=== PATIENT | male | born 1965 | race Caucasian/White ===

== ENCOUNTER 2023-10-24 13:08 | Inpatient (IN) ==
--- OUTSIDE RECORDS SUMMARY | 2023-10-24 13:15 | External Medical Summary | Continuity of Care Document ---
Author Name Unknown Organization [facility] [address] [address] [place] [address] [id number] Care Team Providers Care Stereoptician Name Role Phone Raji Martel Primary Care Physician [phone] Encounter [facility] [id number] Date(s): 10/06/23 - 10/06/23 [facility] 0 [facility] [address] [facility] [address] [place] [address] [phone] Encounter Diagnosis Other chronic pain(Final) - Chronic back pain(Discharge Diagnosis) - 10/07/23 Discharge Disposition: Home or Self Care Attending Physician: DO Hendricks Gretchen Elizabeth Allergies, Adverse Reactions, Alerts Substance Criticality Severity Reaction Reaction Severity Status erythromycin hives Active Ragweed asthma symptoms Acti ve azithromycin Eruption Active aspirin Gastrointestina l symptom Active povidone iodine topical Eruption Active shellfish Pharyngeal swel ling Swelling Active Betadine blister Active Adhesive bandage blister Act gallo Cats asthma symptoms Acti ve Dust mite asthma symptoms Acti ve Dogs asthma symptoms/hives Active Dust asthma symptoms Acti ve Grass asthma symptoms Acti ve Trees asthma symptoms Acti ve Immunizations Given and Recorded Vaccine Date Status Refusal Reason zoster vaccine, inactivated 03/19/22 Recorded zoster vaccine, inactivated 10/11/21 Recorded SARS-CoV-2 mRNA (Pfizer 12+) bivalent 01/03/22 Rec orded SARS-CoV-2 (COVID-19) mRNA BNT-162b2 vax 01/26/21 Recorded SARS-CoV-2 (COVID-19) mRNA BNT-162b2 vax 07/13/20 Recorded SARS-CoV-2 (COVID-19) mRNA BNT-162b2 vax 06/22/20 Recorded influenza virus vaccine, inactivated 01/06/19 Give n pneumococcal 13-valent vaccine 04/21/18 Recorded pneumococcal 23-valent vaccine 04/19/08 Recorded Medications acetaminophen-hydrocodone 325 mg-5 mg oral tablet Start: 10/06/23 5:28:00 PM EDT, 1 tab, PO, Daily, Disp# 30 tab, Refills: 0, PRN: as needed for pain, Pharmacy: [facility]/pharmacy #[id number] Start Date: 10/06/23 Status: Ordered Albuterol (Eqv-ProAir HFA) 90 mcg/inh inhalation aerosol Start: 02/11/23 1:45:00 PM EST, 2 puff, inhaled, q6h, Disp# 8 g, PRN: shortness of breath, Pharmacy:[facility] #[id number] Start Date: 02/11/23 Status: Ordered Reina Start: 12/27/10 6:25:00 AM EDT, 180 mg =, PO, Daily Start Date: 12/27/10 Status: Ordered amLODIPine 10 mg oral tablet Start: 04/25/15 8:34:00 AM EST, 1 tab, PO, Daily Start Date: 04/25/15 Status: Ordered Breyna 160 mcg-4.5 mcg/inh inhalation aerosol Start: 05/13/23 2:23:00 PM EST, 2 puff, inhaled, bid, Disp# 1 each, Refills: 3, Pharmacy: [facility] #[id number] Start Date: 05/13/23 Status: Ordered budesonide 0.25 mg/2 mL inhalation suspension Start: 05/13/23 2:22:00 PM EST, 2 mL, NEB, Daily, Disp# 60 mL, Refills: 2, Pharmacy: [facility] #[id number] Start Date: 05/13/23 Status: Ordered DULoxetine 30 mg oral delayed release capsule Start: 09/15/23 1:03:00 PM EDT, See Instructions, Disp# 90 cap, Refills: 3, take 1 capsule by mouth once daily, Pharmacy: [facility]/pharmacy #[id number] Start Date: 09/15/23 Status: Ordered Dupixent Pen 300 mg/2 mL SQ solution Start: 07/01/23 1:43:00 PM EDT, See Instructions, subQ, Disp# 4 mL, Refills: 0, INJECT 2 PENS (600 MG) UNDER THE SKIN ONCE LOADING DOSE, Pharmacy: [facility] Start Date: 07/01/23 Status: Ordered Dupixent Pen 300 mg/2 mL SQ solution Start: 07/01/23 1:43:00 PM EDT, See Instructions, subQ, Disp# 4 mL, Refills: 11, INJECT 1 PEN (300 MG) UNDER THE SKIN EVERY 2 WEEKS, Pharmacy: [facility] Start Date: 07/01/23 Status: Ordered famotidine 20 mg oral tablet Start: 07/13/23 8:43:00 AM EDT, 1 tab, PO, bid, Disp# 60 tab, Refills: 0, [id number] Start Date: 07/13/23 Status: Ordered Flonase 50 mcg/inh nasal spray Start: 02/20/15 9:03:00 AM EST, 2 spray, each nostril, bid Start Date: 02/20/15 Status: Ordered inhaler spacer Start: 05/22/16 4:11:00 PM EST, See Instructions, Disp# 1 each, use with advair and albuterol, Pharmacy: [facility]/pharmacy #[id number] Start Date: 05/22/16 Status: Ordered lisinopril 20 mg oral tablet Start: 09/15/23 11:21:00 AM EDT Start Date: 09/15/23 Status: Ordered Multi vitamins Start: 07/23/23 11:26:00 AM EDT, Multi vitamins, vit C/E/zinc ox/haris/lut/zeax (ICAPS AREDS2 PO) 2tabs in am and 1 tab a night Start Date: 07/23/23 Status: Ordered pantoprazole 40 mg oral delayed release tablet Start: 09/15/23 1:03:00 PM EDT, 1 tab, PO, Daily, Disp# 90 tab, Refills: 3, Pharmacy: [facility]/pharmacy #[id number] Start Date: 09/15/23 Status: Ordered pregabalin 150 mg oral capsule Start: 10/07/23 3:02:00 PM EDT, 1 cap, PO, bid, Disp# 60 cap, Refills: 0, Pharmacy: [facility]/pharmacy #[id number] Start Date: 10/07/23 Stop Date: 11/06/23 Status: Ordered Singulair 10 mg oral tablet Start: 10/06/23 2:27:00 PM EDT, 1 tab, PO, qPM Start Date: 10/06/23 Status: Ordered tiZANidine 2 mg oral tablet Start: 01/26/23 9:53:00 AM EDT, 1 tab, PO, q8h, Disp# 90 tab, Refills: 3, 30 each, take 1 tablet bymouth every 12 hours if needed for SPASM(S), PRN: pain - moderate (4-6), Pharmacy: [facility] #[id number] Start Date: 01/26/23 Stop Date: 05/26/23 Status: Ordered Vitamin D3 Start: 06/03/21 2:41:00 PM EST, 5000 IU, PO, Daily Start Date: 06/03/21 Status: Ordered Mental Status 10/06/23 Barriers to Learning one year Vision imp airment Mandatory Health Literacy Documentation Yes Health Literacy Communication Barriers N ever Primary Language Setswana Problem List Condition Confirmation Course Effective Dates Status H ealth Status Informant House dust mite allergy Confirmed Active Eosinophilic asthma Confirmed Active Chronic back pain Confirmed Active Chronic pain syndrome Confirmed Active DDD (degenerative disc disease), lumbar Confirmed Active Macular degeneration Confirmed Active Environmental allergies Confirmed Active S/P insertion of spinal cord stimulator Confirmed Active S/P lumbar fusion Confirmed Active Status post lumbar laminectomy Confirmed Active Hypertension Confirmed Active IBS (irritable bowel syndrome) Confirmed Active Lumbar radiculopathy Confirmed Active Chronic nasal congestion Confirmed Active Cataract, nuclear sclerotic, both eyes Confirmed Active Post laminectomy syndrome Confirmed Active Sarcoidosis Confirmed Active Weight disorder Confirmed Active Diagnosis Diagnosis Type Effective Dates Health Status Cl inical Service Informant Chronic back pain Discharge Diagnosis 10/07/23 Non-Specified Procedures Procedure Date Related Diagnosis Body Site Status INSERTION STIMULATOR SPINE 1 01/26/23 Completed Back fusion 07/24/21 Completed Colonoscopy 06/11/21 Completed Endoscopy 2021 Completed Laminectomy 04/2020 Completed H/O shoulder surgery 2014 Comp leted Hernia repair 2010 Completed Implantation of penile prosthesis 2010 Completed Colonoscopy 2006 Completed Biopsy of lung 2004 Completed Cervical spinal fusion 1997 Co mpleted Bunionectomy 1991 Completed EGD (esophagogastroduodenoscopy) Completed 1auto-populated from documented surgical case Results Laboratory List Name Date Confirmation of Opiates, Urine (OPIATES CONF URN) 10/06/23 Drugs of Abuse w Confirmation, Urine (DA U11,MED W/CONF URN) 10/06/23 Most recent to oldest [Reference Range]: 1 Methadone (u) NONE DETECTED *Unknown* (10/06/23 3:10 PM) U Buprenorph Lvl NONE DETECTED *Unknown* (10/06/23 3:10 PM) U Fentanyl Scr NONE DETECTED *Unknown* (10/06/23 3:10 PM) Methadone Metabolite (u) NONE DETECTED *Unknown* (10/06/23 3:10 PM) Codeine(conf)(u) REQUEST CREDITED 1 *Unknown* (10/06/23 3:10 PM) Hydromorphone(conf)(u) REQUEST CREDITED 2 *Unknown* (10/06/23 3:10 PM) Morphine(conf)(u) REQUEST CREDITED 3 *Unknown* (10/06/23 3:10 PM) Oxycodone (u) NONE DETECTED *Unknown* (10/06/23 3:10 PM) Amphetamines(u) NONE DETECTED *Unknown* (10/06/23 3:10 PM) Barbiturates(u) NONE DETECTED *Unknown* (10/06/23 3:10 PM) Benzodiazepines(u) NONE DETECTED *Unknown* (10/06/23 3:10 PM) Cocaine(u) NONE DETECTED *Unknown* (10/06/23 3:10 PM) Marijuana(u) NONE DETECTED *Unknown* (10/06/23 3:10 PM) Opiates(u) PRESUMPTIVE POSITIVE DRUG RESULT 4 *Unknown* (10/06/23 3:10 PM) Hydrocodone(conf)(u) REQUEST CREDITED 5 *Unknown* (10/06/23 3:10 PM) Oxycodone(conf)(u) REQUEST CREDITED 6 *Unknown* (10/06/23 3:10 PM) 1Result Comment: REORDERED BY LAB SEE REFERENCE REPORT 2Result Comment: REORDERED BY LAB SEE REFERENCE REPORT 3Result Comment: REORDERED BY LAB SEE REFERENCE REPORT 4Result Comment: See Confirmatory Results 5Result Comment: REORDERED BY LAB SEE REFERENCE REPORT 6Result Comment: REORDERED BY LAB SEE REFERENCE REPORT Vital Signs Most recent to oldest [Reference Range]: 1 Height 178.6 cm (10/06/23 2:27 PM) Patient Weight 131.2 kg (10/06/23 2:27 PM) Body Mass Index 41.13 kg/m2 (10/06/23 2:27 PM) Heart Rate 103 bpm (10/06/23 2:27 PM) Respiratory Rate 12 br/min (10/06/23 2:27 PM) Blood Pressure 98/64mmHg (10/06/23 2:27 PM) Cuff Pulse Pressure 34 mmHg (10/06/23 2:27 PM) Social History Social History Type Response Smoking Status Never smoked cigaret laina Sex Male Implantable Device List Procedure Provider Procedure Date Device Type Site Unknown Unknown 01/26/23 Unknown Unknown Device Identifier Serial Number Lot or Batch Number Manufacturing Date Expiration Date Distinct Identification Code MRI Safety Implantable Status Assigning Authority Unknown Unknown n/a Unknown 12/29/24 Unknown Unknown Active Unkn own Unknown Unknown [id number] Unknown 11/04/23 Unknown Unknown Active Unknown Unknown Unknown [id number] Unknown 11/18/24 Unknown Unknown Active Unkn own Patient Care team information Care Team Personnel Name: MD Alayna, Lico Mckeon Position: Physician - Pulmonary Med Member Role: Lifetime Relationship Address: Address: [address] [place] [address] [address] [place] [address] [place] Name: Lotus Adair Alisha Position: Pharmacist Member Role: Pharmacy - Lifetime Name: MD Martel Kiran Position: Referring DIRECT Member Role: Primary Care Provider Address: Address: [facility] [address] [place] [address] [place] Care Team Related Persons Name: CATIE MCALLISTER
--- NOTE | 2023-10-24 14:05 | XRay Report ---
XR chest 1V portable CLINICAL HISTORY: Chest pain, nonspecific TECHNIQUE: Single frontal radiograph of the chest was obtained. Comparison: None available at the time of this dictation. FINDINGS: ACDF is seen. The cardiomediastinal silhouette is normal. The lungs are clear. No evidence of pleural effusion or pneumothorax. IMPRESSION: No acute chest disease. ACT 112: Negative or not required by law. Electronically signed by: Darell Sharma M.D. 10/24/2023 2:03 PM
[2023-10-24 14:28] LABS: Albumin Globulin Ratio 1.4 (0.9-2); Albumin Level 4.2 gm/dl (3.4-5.0); BUN Creatinine Ratio 23.4 (10-20); Bilirubin,Total 1.3 mg/dl (0.2-1.0); Calcium 9.4 mg/dl (8.6-10.3); Creatinine Clr Calc Pharmacy 143.5 ml/min; Est GFR (African American) 116.8 ml/min; Est GFR (Non-African American) 100.7 ml/min; Globulin 3.1 gm/dl (2.5-4.0); Potassium 4.2 mmol/L (3.5-5.1); Total Protein 7.3 gm/dl (6.0-8.3)
[2023-10-24 14:30] LABS: Basophils # (auto) 0.15 K/uL (0.00-0.20); Eosinophils # (auto) 0.57 K/uL (0.00-0.50); Eosinophils % (auto) 3.6 %; Hematocrit (blood only) 44.6 % (42.0-52.0); Hemoglobin 14.5 g/dl (14.0-18.0); Immature Granulocytes # (auto) 0.07 K/uL (0.01-0.20); Immature Granulocytes % (auto) 0.4 %; Lymphocytes # (auto) 4.23 K/uL (1.20-3.40); Mean Corpuscular Hemoglobin 25.8 pg (25.0-34.0); Mean Corpuscular Hgb Conc 32.5 g/dL (32.0-36.0); Mean Corpuscular Volume 79.2 fL (80.0-100.0); Mean Platelet Volume 9.9 fL (9.4-12.4); Monocytes # (auto) 1.34 K/uL (0.11-0.59); Monocytes % (auto) 8.5 %; Neutrophils # (auto) 9.33 K/uL (1.40-6.50); Neutrophils % (auto) 59.5 %; Platelet Count 446 K/uL (130-400); RDW Coefficient of Variation 15.3 % (11.5-14.5); RDW Standard Deviation 44.1 fL (36.4-46.3); Red Blood Count 5.63 M/uL (4.70-6.10); White Blood Count 15.69 K/ul (4.8-10.8)
[2023-10-24 14:34] LABS: Troponin I High Sensitivity 15.8 pg/ml (0-20)
[2023-10-24 14:39] LABS: INR 0.9 (0.9-1.1); Partial Thromboplastin Time 28 Seconds (21-31); Prothrombin Time 10.3 Seconds (9.0-12.0)
--- NOTE | 2023-10-24 15:09 | CT Scan Report ---
CT chest diagnostic wo con CLINICAL HISTORY: food aspiration, R chest abn breath sounds TECHNIQUE: Multidetector row helical CT of the chest was performed. Coronal and sagittal reformations were obtained. Automated dose lowering techniques and/or adjustment according to patient size were u tilized for this exam. CT DOSE: 970. mGy.cm Comparison: Comparison is made to chest radiograph 10/24/2023 FINDINGS: Lungs and pleura: Patchy opacities likely representing mucous plugging are in the left lower lobe. Sm all pulmonary nodules measures 2 mm in the right lower lobe (series 4 image 149). Focus of scarring i s in the left upper lobe (image 103). Heart and pericardium: Heart size is normal. No pericardial effusion. Vessels: Moderate atherosclerotic changes in the aorta and coronary arteries. Mediastinum and pina: Unremarkable. Chest wall and lower neck: Unremarkable. Abdomen: Hepatic steatosis is noted. Bones: Degenerative changes in the thoracic spine. ACDF is seen. IMPRESSION: No evidence of aspiration. ACT 112: Negative or not required by law. Electronically signed by: Darell Sharma M.D. 10/24/2023 3:07 PM
[2023-10-24] MEDS: methylPREDNISolone 125 MG/2 ML VIAL IV STA (16:10)
[2023-10-24] MEDS: SODIUM CHLORIDE 0.9% 1,000 ML IV SCH (16:10)
[2023-10-24] MEDS: SODIUM CHLORIDE 0.9% 500 ML IV ONE (16:10)
--- NOTE | 2023-10-24 16:25 | History & Physical Report ---
Date of Service October 24, 2023 Assessment & Plan (1) Aspiration into airway: Plan: Choking event with aspiration into airway on 10/22 around noon Patient endorses SOB at rest and wheezing since the event Pulmonology consulted for bronchoscopy on 10/24 Strict n.p.o. for now Convert p.o. medications to IV with possible Unasyn 3000 mg IV q6h IVF maintenance with LR at 150mL/hr x 3 L Pain control with IV acetaminophen and IV Dilaudid as needed for breakthrough pain A.m. CBC, BMP, mag (2) Asthma exacerbation: Plan: Solu-Medrol 40mg IV QAM DuoNeb Q6R scheduled Performist BID Pulmicort BID (3) Hypertension: Plan: Hold amlodipine, losartan prior to bronchoscopy (4) History of sarcoidosis: Plan Disposition: Admit to PCU telemetry (1 East) DNR/DNI NPO for now; advance diet after bronchoscopy VTE PPx: SCDs; will hold chemical DVT PPx prior to bronch History of Present Illness Chief Complaint: SOB/Dyspnea Primary Care Provider: Megan Eldridge Catarino is a 58-year-old male with PMH of asthma, BEKA, and sarcoidosis. He presented on 10/23 for trouble breathing following an episode of choking. He reports he was eating [employer] levers pizza yesterday on 10/22 when he experienced an episode of choking and aspiration around 12 PM. Following this episode, he became short of breath both at rest and with exertion, and has been wheezing significantly. He endorses pleuritic chest pain, that is worse on the right lower rib wall. He describes it as an intense, squeezing pain; rates it 4/10 at present, 10/10 at worst. He reports he felt like his "ribs were clicking" when he took a deep breath. Exacerbated by deep breaths. He took hydrocodone 325 mg last night. He denies coughing or hemoptysis. Patient reports that he took his regular morning medications today; no recent change in medications. He reports he is unable to take azithromycin due to rashes. He denies smoking, tobacco use, or recent alcohol use. He does not use supplemental oxygen at home or CPAP at night. Patient's vitals are stable at time of admission; SpO2 94% on RA. ED course: NSS 500 mL IV Unasyn 3000 mg IV Formoterol 20 mcg neb Budesonide 0.5 mg neb Solu-Medrol 125 mg IV ROS: Patient endorses right-side chest pain, SOB at rest, wheezing Patient denies fever, chills, night-sweats, abdominal pain, N/V/D, urinary symptoms, or numbness/tingling going down arms Allergies Allergy/AdvReac Type Severity Reaction Status Date / Time house dust mite Allergy Mild Verified 10/02/23 13:37 shellfish derived Allergy Mild Verified 10/02/23 13:37 house dust Allergy Verified 10/02/23 13:37 cat Allergy Mild Uncoded 10/02/23 13:37 dogs Allergy Mild Uncoded 10/02/23 13:37 grass Allergy Mild Uncoded 10/02/23 13:37 tree Allergy Mild Uncoded 10/02/23 13:37 Home Medications Medication Instructions Recorded Confirmed Type amlodipine 10 mg tablet 10 mg PO DAILY 10/02/23 10/24/23 History budesonide 0.25 mg/2 mL suspension 0.5 mg inhalation DAILY PRN Other 10/02/23 10/24/23 History for nebulization cholecalciferol (vitamin D3) 125 2,000 unit PO DAILY 10/02/23 10/24/23 History mcg (5,000 unit) capsule duloxetine 30 mg capsule,delayed 30 mg PO DAILY 10/02/23 10/24/23 History release famotidine 20 mg tablet 20 mg PO BID 10/02/23 10/24/23 History fexofenadine 180 mg tablet 180 mg PO DAILY 10/02/23 10/24/23 History hydrocodone 5 mg-acetaminophen 325 1 tab PO DAILY PRN Pain 10/02/23 10/24/23 History mg tablet lisinopril 20 mg tablet 20 mg PO DAILY 10/02/23 10/24/23 History multivitamin 1 tab PO DAILY 10/02/23 10/24/23 History pantoprazole 40 mg tablet,delayed 40 mg PO DAILY 10/02/23 10/24/23 History release pregabalin 150 mg capsule 150 mg PO BID 10/02/23 10/24/23 History tizanidine 2 mg capsule 2 mg PO Q8H PRN Other 10/02/23 10/24/23 History albuterol sulfate 90 mcg/actuation 2 puff inhalation Q6H PRN 10/06/23 10/24/23 Rx aerosol inhaler shortness of breath or wheezing #8.5 grams budesonide-formoterol HFA 160 2 puff inhalation BID #10.2 grams 10/06/23 10/24/23 Rx mcg-4.5 mcg/actuation aerosol inhaler (Breyna) fluticasone propionate 50 1 spray intranasal BID #16 grams 10/06/23 10/24/23 Rx mcg/actuation nasal spray,suspension (Allergy Relief (fluticasone)) montelukast 10 mg tablet 10 mg PO QPM #30 tabs 10/06/23 10/24/23 Rx (Singulair) dupilumab 300 mg/2 mL subcutaneous 300 mg (2 mL) subcut .every 2 10/09/23 10/24/23 Rx pen injector weeks #4 mL Past Med/Surg History Problem List (Updated 10/24/23 @ 18:04 by Yuniel Mina MD) Hypertension Asthma exacerbation Aspiration into airway (Acute) BEKA (obstructive sleep apnea) History of sarcoidosis Obesity Exertional shortness of breath Asthma (Acute) Social History (Updated 10/02/23 @ 13:37 by Melissa Alegria LPN) Smoking Status: Never smoker Preferred Language: Turkmen Feels Safe at Home: Yes Review of Systems Review of Systems: See HPI above Physical Exam Physical Exam: General: Mild respiratory distress; non-toxic appearing; cooperative; SpO2 95% on RA HEENT: normocephalic, atraumatic; no scleral icterus; PERRLA; vision and hearing grossly intact Neck: supple; no lymphadenopathy; trachea midline Skin: warm, dry without signs of tenting; no cyanosis; no rashes, bruising, lesions, or erythema noted CV: chest wall NTP; RRR; S1/S2 normal; no murmurs/rubs/gallops; pulses intact and symmetric at radial, DP, and PT Lungs: Mild respiratory distress; symmetrical chest wall expansion; expiratory wheezes and bibasilar crackles in the lower lung briscoe bilaterally (worse on the right side compared to the left) ABD: Soft, NTP; BS present; no rebound/guarding; no distention MSK: no tics or fasciculations; no edema noted in the LEs b/l, nonerythematous Neuro: A&Ox3; normal mood and affect; fluent speech; no focal deficits; sensation grossly intact in the LEs b/l Results & Data Results & Data Vital Signs (Past 12 Hours) Vital Signs Temp Pulse Resp BP Pulse Ox O2 Del Method 10/24/23 16:02 84 10/24/23 16:00 112/71 10/24/23 16:00 84 12 92 Room Air 10/24/23 15:36 100 H 19 94 10/24/23 15:30 119/72 10/24/23 15:30 119/72 10/24/23 15:21 88 15 93 10/24/23 15:15 93 H 20 92 10/24/23 15:00 110/75 10/24/23 14:45 94 H 24 94 10/24/23 14:39 87 12 94 10/24/23 14:30 115/81 10/24/23 14:27 90 20 93 10/24/23 14:24 90 14 95 10/24/23 13:54 115 H 28 H 95 Room Air 10/24/23 13:54 Room Air 10/24/23 13:54 Room Air 10/24/23 13:08 36.6 C 111 H 18 131/87 92 Laboratory Results Abnormal lab results 10/24/23 Range/Units 13:52 WBC 15.69 H (4.8-10.8) K/ul MCV 79.2 L (80.0-100.0) fL RDW Coeff of Nichelle 15.3 H (11.5-14.5) % Plt Count 446 H (130-400) K/uL Neut # (Auto) 9.33 H (1.40-6.50) K/uL Lymph # (Auto) 4.23 H (1.20-3.40) K/uL [place] # (Auto) 1.34 H (0.11-0.59) K/uL Eos # (Auto) 0.57 H (0.00-0.50) K/uL BUN/Creatinine Ratio 23.4 H (10-20) Glucose 101 H (70-99(Fasting)) mg/dl Total Bilirubin 1.3 H (0.2-1.0) mg/dl Diagnostic Findings Chest X-Ray 10/24/23 13:17 XR chest 1V portable CLINICAL HISTORY: Chest pain, nonspecific TECHNIQUE: Single frontal radiograph of the chest was obtained. Comparison: None available at the time of this dictation. FINDINGS: ACDF is seen. The cardiomediastinal silhouette is normal. The lungs are clear. No evidence of pleural effusion or pneumothorax. IMPRESSION: No acute chest disease. ACT 112: Negative or not required by law. Electronically signed by: Darell Sharma M.D. 10/24/2023 2:[address] 10/24/23 14:24 CT chest diagnostic wo con CLINICAL HISTORY: food aspiration, R chest abn breath sounds TECHNIQUE: Multidetector row helical CT of the chest was performed. Coronal and sagittal reformations were obtained. Automated dose lowering techniques and/or adjustment according to patient size were utilized for this exam. CT DOSE: 970. mGy.cm Comparison: Comparison is made to chest radiograph 10/24/2023 FINDINGS: Lungs and pleura: Patchy opacities likely representing mucous plugging are in the left lower lobe. Small pulmonary nodules measures 2 mm in the right lower lobe (series 4 image 149). Focus of scarring is in the left upper lobe (image 103). Heart and pericardium: Heart size is normal. No pericardial effusion. Vessels: Moderate atherosclerotic changes in the aorta and coronary arteries. Mediastinum and pina: Unremarkable. Chest wall and lower neck: Unremarkable. Abdomen: Hepatic steatosis is noted. Bones: Degenerative changes in the thoracic spine. ACDF is seen. IMPRESSION: No evidence of aspiration. ACT 112: Negative or not required by law. Electronically signed by: Darell Sharma M.D. 10/24/2023 3:07 PM ECG Additional Comments: ECG revealed NSR at 99 bpm; QTc 415 Code Status & VTE Plan Code Status DNR/DNI VTE Prophylaxis Plan VTE Prophylaxis will be ordered: Yes Supervising Physician Co-Signing Physician Notes Patient seen and examined, chart reviewed, case discussed with Dimitry Callaway PA-C and I agree with the assessment and plan as above except as otherwise noted Labs and images reviewed 58-year-old male with history of asthma, BEKA, sarcoidosis who had an episode of choking with aspiration followed by shortness of breath. Patient was referred by pulmonology, bronchoscopy is anticipated 10/24. Endorses right-sided chest discomfort, wheezing since the aspiration event 10/22. CT of the chest is without acute findings. Small pulmonary nodules measuring 3 mm right lower lobe are noted. Pulmonology following, recommended budesonide/formoterol, n.p.o. at midnight for bronchoscopy. Clinically stable at bedside. Normotensive, 95% on room air, afebrile, regular rate and rhythm with pulse 88. Troponin is normal. EKG is normal sinus rhythm without territorial ischemic changes, QTc is normal. On exam he has scattered expiratory wheezing most prominent in the right lower lobe. Is on we will take a deep breath due to wheezing and induction of coughing. Patient initially requested to be conditional code chest compressions only no intubation. On discussion of the nature of resuscitation patient is adamant that he does not wish to have a ventilator in the setting of cardiac arrest under any circumstances. He does note that around procedures or surgeries he is okay with temporary intubation and ventilation however in the event of a code he does not wish to have a breathing tube or ventilator. Did discuss CPR, and potential for success with and without ventilatory support. On shader decision making patient would like to switch to DNR/DNI, and in the event of a cardiopulmonary arrest defer both chest compressions and intubation. CODE STATUS updated. No additional questions or concerns about the line PG Care Time/CCT Total # of Minutes Spent Total Time Spent with Patient: Total time spent is greater than 50% in coordination of care (as documented) at patient's floor/unit and/or counseling patient: [place] [address] INT INP/OBS CARE 3/75MIN Patient Type New Medical Decision Making High Complexity Diagnoses Aspiration into airway T17.908A Asthma exacerbation J45.901 Hypertension I10 History of sarcoidosis Z86.2
[2023-10-24] MEDS: BUDESONIDE 0.5 MG/2 ML VIAL (PULMICORT) NEB STA (16:30)
[2023-10-24] MEDS: FORMOTEROL 20 MCG/2 ML VIAL NEB STA (16:30)
[2023-10-24] MEDS: AMPICILLIN/SULBACTAM SOD 3,000 MG in SODIUM CHLOR 0.9% MINI-B 100 ML IV STA (17:00)
[2023-10-24] MEDS: LACTATED RINGER'S 1,000 ML IV SCH (17:35)
--- NOTE | 2023-10-24 18:04 | Emergency Department Note ---
Impression & Plan Aspiration into airway, Asthma ED Provider Note NAME: PIETRO POZO AGE: 58 SEX: Male INFORMANT: Patient ED PROVIDER(S): Yuniel Mina MD CHIEF COMPLAINT: Shortness of breath, aspiration PLAN: Disposition: Admitted Outpatient prescription management: none Referral: None MEDICAL DECISION MAKING: Patient presented because of shortness of breath. He had aspirated. He did have abnormal lung sounds on the right side. Chest x-ray did not reveal any abnormalities. Patient did have a leukocytosis on CBC. Chemistry panel was unremarkable. ECG did not show any acute ischemia. Patient underwent CT imaging which shows some mucous plugging but no definitive foreign body or pneumonia. Discussed the case with Dr. Wan of pulmonology. He recommended starting budesonide 0.5 mg twice daily and Perforomist 20 mcg twice daily. Also recommended IV Solu-Medrol and IV antibiotics. Discussed IV Unasyn and he agreed. He would like the patient to be n.p.o. and plans to do a bronchoscopy in the morning. Discussed with patient and he is in agreement. Consultation was made with Dr. Yohannes Gloria of the [facility] service. Patient was evaluated in the ER for further management. Care/management discussed with: manager cafe Level of care consideration(s): After review of the information above and other included data, I feel the patient requires escalation of care to admission Triage Nursing notes: reviewed and agree them. Vital Signs: reviewed and remarkable for no significant abnormalities Additional History obtained from: none Chronic Medical/Social Conditions affecting care: Asthma Prior/ Outside/ External records reviewed: none Differential Diagnosis: Aspiration, reactive airway disease, pneumonia, pneumothorax, COPD, CHF, infections, cardiac ischemia, pulmonary embolism, musculoskeletal, gastrointestinal, as well as other pathologies. Diagnostics, independently interpreted by me: EC Lead ECG performed and revealed Normal sinus rhythm at 99, normal Bill[place], QRS normal. No elevation or depression. No PACs or PVCs Cardiac Monitoring: Cardiac monitoring ordered by me: The patient was placed on continuous cardiac monitoring and observed. It revealed a normal sinus rhythm at 88 beats per minute without ectopy or evidence of dysrhythmia. Medical decision rules: none Imaging studies: Chest x-ray. Findings: A chest x-ray was performed and revealed no pneumothorax, effusion, infiltrate, pulmonary edema, free air under the diaphragm, or wide mediastinum. Impression: No acute disease. I refer you to the EMR for further details. HPI: 58 year old Male arrives for evaluation of shortness of breath and concerns for aspiration. Patient states that he was eating a popping pizza yesterday. He is sure that he aspirated a piece as he noted it went down and he was choking. It did not come back up. He noted discomfort in the right side of his chest with difficulty breathing. He felt like he was wheezing on the right side. Patient does have a history of asthma. Found no relieving factors. Maximum discomfort was rated a 6 out of 10. Pt denies fevers, chills, neck pain, chest pain, nausea, vomiting, abdominal pain, back pain, numbness, weakness, or other complaints. . PAST MEDICAL HISTORY: See Below, asthma PAST SURGICAL HISTORY: See Below, SOCIAL HISTORY: See Below, non-smoker HOME MEDICATIONS: See Below ALLERGIES: See Below VITALS: See Below PHYSICAL EXAMINATION: GENERAL: Awake, alert, well-appearing, in no distress HENT: Normocephalic, atraumatic. Oropharynx unremarkable. EYES: Normal conjunctiva. Sclera non-icteric. NECK: Inspection normal. Non-tender. Supple. No nuchal rigidity. FROM. No masses. RESPIRATORY: Right-sided inspiratory expiratory wheezes. No rales. Mildly increased respiratory effort. CARDIAC: Normal rate. Normal rhythm. No murmurs. No rubs. Extremities warm and well perfused. Pulses equal. No JVD. GI: Soft, non-distended. No tenderness to palpation. No rebound or guarding. No masses. RECTAL: Deferred. MUSCULOSKELETAL: Atraumatic. Chest examination reveals no tenderness. The back is symmetrical on inspection without obvious abnormality. There is no CVA tenderness to palpation. No joint edema. LOWER EXTREMITIES: Calves are equal size bilaterally and non-tender. No edema. No discoloration. NEURO: Normal sensorium. No sensory or motor deficits noted. SKIN: No rash or jaundice noted. PROCEDURES: none CRITICAL CARE: none OBSERVATION NOTE: none Past Med/Surg History Problem List (Updated 10/24/23 @ 18:04 by Yuniel Mina MD) Hypertension Asthma exacerbation Aspiration into airway (Acute) BEKA (obstructive sleep apnea) History of sarcoidosis Obesity Exertional shortness of breath Asthma (Acute) Social History (Updated 10/02/23 @ 13:37 by Melissa Alegria LPN) Smoking Status: Never smoker Preferred Language: Armenian Feels Safe at Home: Yes Allergies Allergies Allergy/AdvReac Type Severity Reaction Status Date / Time house dust mite Allergy Mild Verified 10/02/23 13:37 shellfish derived Allergy Mild Verified 10/02/23 13:37 house dust Allergy Verified 10/02/23 13:37 cat Allergy Mild Uncoded 10/02/23 13:37 dogs Allergy Mild Uncoded 10/02/23 13:37 grass Allergy Mild Uncoded 10/02/23 13:37 tree Allergy Mild Uncoded 10/02/23 13:37 Home Meds Home Medications Medication Instructions Recorded Confirmed amlodipine 10 mg tablet 10 mg PO DAILY 10/02/23 10/24/23 budesonide 0.25 mg/2 mL suspension 0.5 mg inhalation DAILY PRN Other 10/02/23 10/24/23 for nebulization cholecalciferol (vitamin D3) 125 2,000 unit PO DAILY 10/02/23 10/24/23 mcg (5,000 unit) capsule duloxetine 30 mg capsule,delayed 30 mg PO DAILY 10/02/23 10/24/23 release famotidine 20 mg tablet 20 mg PO BID 10/02/23 10/24/23 fexofenadine 180 mg tablet 180 mg PO DAILY 10/02/23 10/24/23 hydrocodone 5 mg-acetaminophen 325 1 tab PO DAILY PRN Pain 10/02/23 10/24/23 mg tablet lisinopril 20 mg tablet 20 mg PO DAILY 10/02/23 10/24/23 multivitamin 1 tab PO DAILY 10/02/23 10/24/23 pantoprazole 40 mg tablet,delayed 40 mg PO DAILY 10/02/23 10/24/23 release pregabalin 150 mg capsule 150 mg PO BID 10/02/23 10/24/23 tizanidine 2 mg capsule 2 mg PO Q8H PRN Other 10/02/23 10/24/23 Previous Rx's Medication Instructions Recorded albuterol sulfate 90 mcg/actuation 2 puff inhalation Q6H PRN 10/06/23 aerosol inhaler shortness of breath or wheezing #8.5 grams budesonide-formoterol HFA 160 2 puff inhalation BID #10.2 grams 10/06/23 mcg-4.5 mcg/actuation aerosol inhaler (Breyna) fluticasone propionate 50 1 spray intranasal BID #16 grams 10/06/23 mcg/actuation nasal spray,suspension (Allergy Relief (fluticasone)) montelukast 10 mg tablet 10 mg PO QPM #30 tabs 10/06/23 (Singulair) dupilumab 300 mg/2 mL subcutaneous 300 mg (2 mL) subcut .every 2 10/09/23 pen injector weeks #4 mL Results & Data (ED) Vital Signs Vital Signs - 24 hr 10/24/23 13:08 10/24/23 13:54 10/24/23 13:54 Temperature 36.6 C Temperature Source Temporal Artery Scan Pulse Rate 111 H Pulse Rate [Apical] Pulse Rate from SpO2 Sensor Respiratory Rate 18 Respiratory Effort / Characteristics Labored Respiratory Depth Shallow Respiratory Pattern Tachypnea Blood Pressure 131/87 Blood Pressure Mean 101 Pulse Oximetry 92 Oxygen Delivery Method Room Air Room Air Sepsis Recent Fever Within 48 Hours No Sepsis New/Unexplained Change in Mental Status N/A Sepsis Action Taken by Nursing No Action Required 10/24/23 13:54 10/24/23 14:24 10/24/23 14:27 Temperature Temperature Source Pulse Rate 115 H 90 90 Pulse Rate [Apical] Pulse Rate from SpO2 Sensor 91 H 92 H Respiratory Rate 28 H 14 20 Respiratory Effort / Characteristics Respiratory Depth Respiratory Pattern Blood Pressure Blood Pressure Mean Pulse Oximetry 95 95 93 Oxygen Delivery Method Room Air Sepsis Recent Fever Within 48 Hours Sepsis New/Unexplained Change in Mental Status Sepsis Action Taken by Nursing 10/24/23 14:30 10/24/23 14:39 10/24/23 14:45 Temperature Temperature Source Pulse Rate 87 94 H Pulse Rate [Apical] Pulse Rate from SpO2 Sensor 87 93 H Respiratory Rate 12 24 Respiratory Effort / Characteristics Respiratory Depth Respiratory Pattern Blood Pressure 115/81 Blood Pressure Mean 91 Pulse Oximetry 94 94 Oxygen Delivery Method Sepsis Recent Fever Within 48 Hours Sepsis New/Unexplained Change in Mental Status Sepsis Action Taken by Nursing 10/24/23 15:00 10/24/23 15:15 10/24/23 15:21 Temperature Temperature Source Pulse Rate 93 H 88 Pulse Rate [Apical] Pulse Rate from SpO2 Sensor 91 H 88 Respiratory Rate 20 15 Respiratory Effort / Characteristics Respiratory Depth Respiratory Pattern Blood Pressure 110/75 Blood Pressure Mean 88 Pulse Oximetry 92 93 Oxygen Delivery Method Sepsis Recent Fever Within 48 Hours Sepsis New/Unexplained Change in Mental Status Sepsis Action Taken by Nursing 10/24/23 15:30 10/24/23 15:30 10/24/23 15:36 Temperature Temperature Source Pulse Rate 100 H Pulse Rate [Apical] Pulse Rate from SpO2 Sensor 98 H Respiratory Rate 19 Respiratory Effort / Characteristics Respiratory Depth Respiratory Pattern Blood Pressure 119/72 119/72 Blood Pressure Mean 84 84 Pulse Oximetry 94 Oxygen Delivery Method Sepsis Recent Fever Within 48 Hours Sepsis New/Unexplained Change in Mental Status Sepsis Action Taken by Nursing 10/24/23 16:00 10/24/23 16:00 10/24/23 16:02 Temperature Temperature Source Pulse Rate 84 84 Pulse Rate [Apical] Pulse Rate from SpO2 Sensor 85 Respiratory Rate 12 Respiratory Effort / Characteristics Respiratory Depth Respiratory Pattern Blood Pressure 112/71 Blood Pressure Mean 94 Pulse Oximetry 92 Oxygen Delivery Method Room Air Sepsis Recent Fever Within 48 Hours Sepsis New/Unexplained Change in Mental Status Sepsis Action Taken by Nursing 10/24/23 16:31 Temperature Temperature Source Pulse Rate Pulse Rate [Apical] 88 Pulse Rate from SpO2 Sensor Respiratory Rate 16 Respiratory Effort / Characteristics Non-Labored Spontaneous Respiratory Depth Respiratory Pattern Blood Pressure Blood Pressure Mean Pulse Oximetry 95 Oxygen Delivery Method Room Air Sepsis Recent Fever Within 48 Hours Sepsis New/Unexplained Change in Mental Status Sepsis Action Taken by Nursing Laboratory Data 10/24/23 13:52 10/24/23 13:52 Lab Results 10/24/23 Range/Units 13:52 WBC 15.69 H (4.8-10.8) K/ul RBC 5.63 (4.70-6.10) M/uL Hgb 14.5 (14.0-18.0) g/dl Hct 44.6 (42.0-52.0) % MCV 79.2 L (80.0-100.0) fL MCH 25.8 (25.0-34.0) pg MCHC 32.5 (32.0-36.0) g/dL RDW Std Deviation 44.1 (36.4-46.3) fL RDW Coeff of Nichelle 15.3 H (11.5-14.5) % Plt Count 446 H (130-400) K/uL MPV 9.9 (9.4-12.4) fL Immature Gran % (Auto) 0.4 % Neut % (Auto) 59.5 % Lymph % (Auto) 27.0 % [place] % (Auto) 8.5 % Eos % (Auto) 3.6 % Baso % (Auto) 1.0 % Neut # (Auto) 9.33 H (1.40-6.50) K/uL Lymph # (Auto) 4.23 H (1.20-3.40) K/uL [place] # (Auto) 1.34 H (0.11-0.59) K/uL Eos # (Auto) 0.57 H (0.00-0.50) K/uL Baso # (Auto) 0.15 (0.00-0.20) K/uL Immature Gran # (Auto) 0.07 (0.01-0.20) K/uL PT 10.3 (9.0-12.0) Seconds INR 0.9 (0.9-1.1) APTT 28 (21-31) Seconds PTT Ratio 1.0 Sodium 136 (136-145) mmol/L Potassium 4.2 (3.5-5.1) mmol/L Chloride 104 (98-107) mmol/L Carbon Dioxide 23 (21-32) mmol/L Anion Gap 9 (3-11) BUN 18 (6-23) mg/dl Creatinine 0.77 (0.6-1.4) mg/dl Est Cr Clr Drug Dosing 143.5 ml/min Est GFR ( Amer) 116.8 ml/min Est GFR (Non-Af Amer) 100.7 ml/min BUN/Creatinine Ratio 23.4 H (10-20) Glucose 101 H (70-99(Fasting)) mg/dl Calcium 9.4 (8.6-10.3) mg/dl Total Bilirubin 1.3 H (0.2-1.0) mg/dl AST 19 (13-39) U/L ALT 22 (7-52) U/L Alkaline Phosphatase 91 (34-104) U/L Troponin I High Sens 15.8 (0-20) pg/ml Total Protein 7.3 (6.0-8.3) gm/dl Albumin 4.2 (3.4-5.0) gm/dl Globulin 3.1 (2.5-4.0) gm/dl Albumin/Globulin Ratio 1.4 (0.9-2) Administered Medications Lactated Ringer's (Lr) 1,000 mls @ 150 mls/hr IV .Q6H40M ANGELA Stop: 10/25/23 12:59 Last Admin: 10/24/23 17:35 Dose: 150 mls/hr Documented By: SRL Discontinued Medications Budesonide (Budesonide 0.5 Mg/2 Ml Vial (Pulmicort)) 0.5 mg NEB NOW STA Stop: 10/24/23 15:49 Last Admin: 10/24/23 16:30 Dose: 0.5 mg Documented By: RAGHU Formoterol Fumarate (Formoterol 20 Mcg/2 Ml Vial) 20 mcg NEB NOW STA Stop: 10/24/23 15:49 Last Admin: 10/24/23 16:30 Dose: 20 mcg Documented By: RAGHU Ampicillin Sodium/Sulbactam Sodium 3,000 mg/ Sodium Chloride 100 mls @ 200 mls/hr IV NOW STA Stop: 10/24/23 16:22 Last Infusion: 10/24/23 17:32 Dose: Infused Documented By: Admin: 10/24/23 17:00 Dose: 200 mls/hr Documented By: SRL Sodium Chloride (Nss) 1,000 mls @ 125 mls/hr IV .Q8H ANGELA Stop: 11/23/23 15:59 Last Infusion: 10/24/23 17:10 Dose: Infused Documented By: Admin: 10/24/23 16:10 Dose: 125 mls/hr Documented By: SRL Sodium Chloride (Nss) 500 mls @ 999 mls/hr IV .Q31M ONE Stop: 10/24/23 16:24 Last Infusion: 10/24/23 16:50 Dose: Infused Documented By: Admin: 10/24/23 16:10 Dose: 999 mls/hr Documented By: SRL Methylprednisolone (Methylprednisolone 125 Mg/2 Ml Vial) 125 mg IV NOW STA Stop: 10/24/23 15:54 Last Admin: 10/24/23 16:10 Dose: 125 mg Documented By: SRL Imaging Data Radiologist's Impression: Chest X-Ray 10/24/23 13:17 XR chest 1V portable CLINICAL HISTORY: Chest pain, nonspecific TECHNIQUE: Single frontal radiograph of the chest was obtained. Comparison: None available at the time of this dictation. FINDINGS: ACDF is seen. The cardiomediastinal silhouette is normal. The lungs are clear. No evidence of pleural effusion or pneumothorax. IMPRESSION: No acute chest disease. ACT 112: Negative or not required by law. Electronically signed by: Darell Sharma M.D. 10/24/2023 2:[address] 10/24/23 14:24 CT chest diagnostic wo con CLINICAL HISTORY: food aspiration, R chest abn breath sounds TECHNIQUE: Multidetector row helical CT of the chest was performed. Coronal and sagittal reformations were obtained. Automated dose lowering techniques and/or adjustment according to patient size were utilized for this exam. CT DOSE: 970. mGy.cm Comparison: Comparison is made to chest radiograph 10/24/2023 FINDINGS: Lungs and pleura: Patchy opacities likely representing mucous plugging are in the left lower lobe. Small pulmonary nodules measures 2 mm in the right lower lobe (series 4 image 149). Focus of scarring is in the left upper lobe (image 103). Heart and pericardium: Heart size is normal. No pericardial effusion. Vessels: Moderate atherosclerotic changes in the aorta and coronary arteries. Mediastinum and pina: Unremarkable. Chest wall and lower neck: Unremarkable. Abdomen: Hepatic steatosis is noted. Bones: Degenerative changes in the thoracic spine. ACDF is seen. IMPRESSION: No evidence of aspiration. ACT 112: Negative or not required by law. Electronically signed by: Darell Sharma M.D. 10/24/2023 3:07 PM Discharge Plan Visit Data Chief Complaint: Shortness of Breath/Dyspnea Stated Complaint: FOOD BOLUS, DIFFICULTY BREATHING, PAIN ED Provider: Yuniel Mina Discharge Problem: Aspiration into airway, Asthma Forms Stand Alone Forms: My [facility] [employer] Prescriptions Prescriptions: No Action duloxetine 30 mg capsule,delayed release(DR/EC) 30 mg PO DAILY pantoprazole 40 mg tablet,delayed release (DR/EC) 40 mg PO DAILY lisinopril 20 mg tablet 20 mg PO DAILY multivitamin Tablet 1 tab PO DAILY famotidine 20 mg tablet 20 mg PO BID budesonide 0.25 mg/2 mL suspension for nebulization 0.5 mg inhalation DAILY PRN (Reason: Other) tizanidine 2 mg capsule 2 mg PO Q8H PRN (Reason: Other) hydrocodone-acetaminophen 5-325 mg tablet 1 tab PO DAILY PRN (Reason: Pain) pregabalin 150 mg capsule 150 mg PO BID cholecalciferol (vitamin D3) 125 mcg (5,000 unit) capsule 2,000 unit PO DAILY amlodipine 10 mg tablet 10 mg PO DAILY fexofenadine 180 mg tablet 180 mg PO DAILY budesonide-formoterol [Breyna] 160-4.5 mcg/actuation HFA aerosol inhaler 2 puff inhalation BID Qty: 10.2 6RF albuterol sulfate 90 mcg/actuation HFA aerosol inhaler 2 puff inhalation Q6H PRN (Reason: shortness of breath or wheezing) Qty: 8.5 6RF fluticasone propionate [Allergy Relief (fluticasone)] 50 mcg/actuation spray,suspension 1 spray intranasal BID Qty: 16 4RF Rx Instructions: administer into each nostril montelukast [Singulair] 10 mg tablet 10 mg PO QPM Qty: 30 5RF dupilumab 300 mg/2 mL pen injector 300 mg subcut .every 2 weeks Qty: 4 5RF Referrals Referrals: Megan Eldridge [Primary Care Provider] -
[2023-10-24] MEDS ORDERED: ONDANSETRON INJ 2 MG/ML 2 ML VIAL IV PRN (19:37)
[2023-10-24] MEDS ORDERED: HYDROmorphone INJ 0.5 MG/0.5 ML SYR IV PRN (19:37)
[2023-10-24] MEDS: ALBUT/IPRATROP 3MG/0.5MG NEB 3 ML VIAL INH SCH (20:10)
[2023-10-24] MEDS: FORMOTEROL 20 MCG/2 ML VIAL NEB SCH (20:39)
[2023-10-24] MEDS: BUDESONIDE 0.5 MG/2 ML VIAL (PULMICORT) NEB SCH (20:39)
[2023-10-24] MEDS: HYDROmorphone INJ 1 MG/ML SYRINGE IV PRN (21:00)
[2023-10-24] MEDS: FLUTICASONE PROPIONATE NA SPR 16 GM BTL SCH (22:00)
[2023-10-24] MEDS: AMPICILLIN/SULBACTAM SOD 3,000 MG in SODIUM CHLOR 0.9% MINI-B 100 ML IV SCH (22:55)
[2023-10-25 07:19] LABS: Basophils # (auto) 0.03 K/uL (0.00-0.20); Basophils % (auto) 0.2 %; Hematocrit (blood only) 43.3 % (42.0-52.0); Hemoglobin 14.1 g/dl (14.0-18.0); Immature Granulocytes # (auto) 0.11 K/uL (0.01-0.20); Immature Granulocytes % (auto) 0.6 %; Lymphocytes # (auto) 3.41 K/uL (1.20-3.40); Lymphocytes % (auto) 18.1 %; Mean Corpuscular Hemoglobin 26.3 pg (25.0-34.0); Mean Corpuscular Hgb Conc 32.6 g/dL (32.0-36.0); Mean Corpuscular Volume 80.8 fL (80.0-100.0); Mean Platelet Volume 9.5 fL (9.4-12.4); Monocytes # (auto) 0.73 K/uL (0.11-0.59); Monocytes % (auto) 3.9 %; Neutrophils # (auto) 14.56 K/uL (1.40-6.50); Neutrophils % (auto) 77.2 %; Platelet Count 435 K/uL (130-400); RDW Coefficient of Variation 15.1 % (11.5-14.5); RDW Standard Deviation 44.1 fL (36.4-46.3); Red Blood Count 5.36 M/uL (4.70-6.10); White Blood Count 18.84 K/ul (4.8-10.8)
[2023-10-25 07:50] LABS: BUN Creatinine Ratio 28.4 (10-20); Calcium 9.4 mg/dl (8.6-10.3); Creatinine Clr Calc Pharmacy 147.4 ml/min; Est GFR (African American) 118.7 ml/min; Est GFR (Non-African American) 102.4 ml/min; Magnesium 1.9 mg/dl (1.7-2.4); Potassium 4.5 mmol/L (3.5-5.1)
--- NOTE | 2023-10-25 08:02 | Pulmonary Consultation ---
Date of Consultation October 25, 2023 Assessment & Plan (1) Asthma exacerbation: (2) Aspiration into airway: (3) Foreign body aspiration: (4) Obesity: (5) BEKA (obstructive sleep apnea): Plan CT chest 10/24/2023 personally reviewed: Narrowing of the RBI, likely foreign body within the RBI 7 mm left upper lobe pulmonary nodule Patient also seems to have very minimal air pocket anteriorly on the right side, questionable small pneumothorax No significant mediastinal lymphadenopathy --Aspiration With a foreign body in the RBI Likely Hem/making which he swallowed -- Acute Asthma exacerbation Severe persistent Strong family history of asthma No history of nasal polyps. Able to tolerate [id number] NSAIDs without any issues On Symbicort 160-4.5 mcg along with as needed albuterol at home Patient also uses dupilumab twice a month Add montelukast 10 mg History of IgE 410 and eosinophil count 450 Spirometry 10/06/2023: Moderate obstructive lung dysfunction FVC 3.81 L 78%, FEV1 2.3 L 62%, FEV1/FVC 61 --History of sarcoidosis Diagnosed approximately 20 years ago s/p bronchoscopy Was never treated with prednisone Full PFT prior to next visit to look at the DLCO and TLC Patient recently had lab work, will try to get the results. If LFT and renal function test along with CBC were not done then I will put the orders in -- BEKA Home sleep study 09/22/2023: AHI 45 Following up with sleep physician --Obesity Advised to lose weight diet and exercise Plan: For bronchoscopy today to remove the foreign body Given there is already very tiny right-sided pneumothorax, I would prefer it to be done with intubation and possibly paralyzed with no significant coughing. Risk and benefit of the procedure was explained to the patient in depth He is agreeable to it Case was also discussed with Dr. Oconnell, anesthesiologist Please note the above document was generated using voice recognition software. It may contain grammatical, syntax or spelling errors.Any formal questions or concerns about the content, text or information contained within the body of this dictation should be directly addressed to the provider for clarification. History of Present Illness Attending Physician: Adama Gibson MD History of Present Illness 58-year-old male was admitted to the hospital with choking/aspiration episode Past medical history: Hypertension, GERD, history of sarcoidosis diagnosed approximately 20 years ago s/p bronchoscopy, was never treated Patient was last seen by me in the office on 10/06/2023 Patient says that he was having pizza with ham and hendrix. He did not have a difficulty swallowing But he did have an aspiration episode where he choked on a small piece when he was not able to bring it up. Since then he has been having issues with his breathing with active wheezing. He also complains of some tightness and pain on the right side. It is not pleuritic in nature. Has been using his Symbicort on a regular basis, hardly has to use the rescue inhaler other than since yesterday. No fever or chills No night sweats, no unintentional weight loss Occasional headache especially early in the morning. No blurry vision No history of nasal polyps. Able to tolerate [id number] NSAIDs without any issues Social history: Lifetime non-smoker, social alcohol, denies any illicit drug use. 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 Pets: None, no birds or poultry nearby Allergies: Round the year Asthma: Strong family history of asthma Lung cancer: No history of lung cancer in the family Allergies Allergy/AdvReac Type Severity Reaction Status Date / Time house dust mite Allergy Mild Verified 10/02/23 13:37 shellfish derived Allergy Mild Verified 10/02/23 13:37 house dust Allergy Verified 10/02/23 13:37 cat Allergy Mild Uncoded 10/02/23 13:37 dogs Allergy Mild Uncoded 10/02/23 13:37 grass Allergy Mild Uncoded 10/02/23 13:37 tree Allergy Mild Uncoded 10/02/23 13:37 Home Medications Medication Instructions Recorded Confirmed Type amlodipine 10 mg tablet 10 mg PO DAILY 10/02/23 10/24/23 History budesonide 0.25 mg/2 mL suspension 0.5 mg inhalation DAILY PRN Other 10/02/23 10/24/23 History for nebulization cholecalciferol (vitamin D3) 125 2,000 unit PO DAILY 10/02/23 10/24/23 History mcg (5,000 unit) capsule duloxetine 30 mg capsule,delayed 30 mg PO DAILY 10/02/23 10/24/23 History release famotidine 20 mg tablet 20 mg PO BID 10/02/23 10/24/23 History fexofenadine 180 mg tablet 180 mg PO DAILY 10/02/23 10/24/23 History hydrocodone 5 mg-acetaminophen 325 1 tab PO DAILY PRN Pain 10/02/23 10/24/23 History mg tablet lisinopril 20 mg tablet 20 mg PO DAILY 10/02/23 10/24/23 History multivitamin 1 tab PO DAILY 10/02/23 10/24/23 History pantoprazole 40 mg tablet,delayed 40 mg PO DAILY 10/02/23 10/24/23 History release pregabalin 150 mg capsule 150 mg PO BID 10/02/23 10/24/23 History tizanidine 2 mg capsule 2 mg PO Q8H PRN Other 10/02/23 10/24/23 History albuterol sulfate 90 mcg/actuation 2 puff inhalation Q6H PRN 10/06/23 10/24/23 Rx aerosol inhaler shortness of breath or wheezing #8.5 grams budesonide-formoterol HFA 160 2 puff inhalation BID #10.2 grams 10/06/23 10/24/23 Rx mcg-4.5 mcg/actuation aerosol inhaler (Breyna) fluticasone propionate 50 1 spray intranasal BID #16 grams 10/06/23 10/24/23 Rx mcg/actuation nasal spray,suspension (Allergy Relief (fluticasone)) montelukast 10 mg tablet 10 mg PO QPM #30 tabs 10/06/23 10/24/23 Rx (Singulair) dupilumab 300 mg/2 mL subcutaneous 300 mg (2 mL) subcut .every 2 10/09/23 10/24/23 Rx pen injector weeks #4 mL Patient History Medical History (Updated 10/25/23 @ 11:08 by Stacy Cruz MD, [facility]) Hypertension History of sarcoidosis Asthma Surgical History (Updated 10/25/23 @ 09:13 by Venkatesh Oconnell MD) History of shoulder surgery History of hernia surgery History of lumbar fusion Hx of fusion of cervical spine Social History (Updated 10/02/23 @ 13:37 by Melissa Alegria LPN) Smoking Status: Never smoker Do You Dip or Chew Tobacco: No; Hx Alcohol Use: Yes Hx Substance Use: Yes Last Used Substance Other:: 30 years ago Preferred Language: Frisian Communication Ability: Effective Waste Management Specialist Required: No Beliefs That Will Affect Care: None Current Living Situation: Alone Feels Safe at Home: Yes Assistive Devices: Cane, Glasses and Hearing Aid - Bilateral Review of Systems 2 Review of Systems: All systems reviewed & are unremarkable except as noted in HPI & below Physical Exam 2 Physical Exam: Constitutional: No acute distress HEENT: EOMI, PERRLA Respiratory system: Good air entry bilaterally, no rhonchi, positive expiratory wheeze appreciated bilaterally, mild crackles bilateral lower lobe CVS: S1-S2 positive, no murmurs or gallops Abdomen: Soft, nontender, nondistended, positive bowel sounds x4, obese Extremities: +2 pulses bilaterally radialis/DP, no cyanosis, no edema Neuro: Awake alert oriented x3 Psych: Normal mood and affect G/U: No reid Skin: no rashes, warm and dry Lymphatic: no cervical or axillary lymphadenopathy Results & Data Results & Data Vital Signs (Past 12 Hours) Vital Signs Temp Pulse Pulse Pulse Resp BP Pulse Ox 10/25/23 07:37 36.3 C L 80 18 130/78 95 10/25/23 07:09 79 18 94 10/25/23 03:35 37.0 C 98 H 18 156/90 H 96 10/25/23 00:16 94 H 16 93 10/24/23 21:54 108 H 10/24/23 21:31 37.0 C 110 H 18 143/83 H 95 10/24/23 21:30 10/24/23 21:00 106 H 22 156/73 H 95 10/24/23 20:30 109 H 20 122/67 97 O2 Del Method O2 Flow Rate 10/25/23 07:37 Nasal Cannula 3 10/25/23 07:09 Nasal Cannula 3 10/25/23 03:35 Nasal Cannula 4 10/25/23 00:16 Nasal Cannula 3 10/24/23 21:54 10/24/23 21:31 Nasal Cannula 3 10/24/23 21:30 Nasal Cannula 4 10/24/23 21:00 Nasal Cannula 3 10/24/23 20:30 Nasal Cannula 2 Laboratory Results 10/25/23 06:51 10/25/23 06:51 PG Care Time/CCT Total # of Minutes Spent Total Time Spent with Patient: Total time spent is greater than 50% in coordination of care (as documented) at patient's floor/unit and/or counseling patient: Coding Level of Care Code 07784 INT INP/OBS CARE MIN Diagnoses Asthma exacerbation J45.901 Aspiration into airway T17.908A Foreign body aspiration T17.908A Obesity E66.9 BEKA (obstructive sleep apnea) G47.33
[2023-10-25] MEDS: methylPREDNISolone 40 MG in SYRINGE 0 ML IV SCH (08:57)
[2023-10-25] MEDS ORDERED: PROPOFOL IV EMULSION 10 MG/ML 20 ML VIAL IV ONE (09:08)
[2023-10-25] MEDS ORDERED: LIDOCAINE 2% 2 ML VIAL/AMP(20MG/ML) INFIL ONE (09:09)
[2023-10-25] MEDS ORDERED: SUCCINYLCHOLINE CHLORIDE 20 MG/ML 10 ML VIAL IV ONE (09:09)
[2023-10-25] MEDS ORDERED: MIDAZOLAM HCL 1 MG/ML 2ML VIAL ONE (09:10)
--- NOTE | 2023-10-25 09:11 | Anesthesiology Consultation ---
Date of Service October 25, 2023 Assessment & Plan (1) Encounter for pre-operative examination: Chart Review Chart Review: Acceptable Risk for Surgery History Surgery Operation Date: 10/25/23 09:05 Proposed Procedures p Bronchoscopy - Stacy Cruz MD, [facility] Height/Weight Height: 5 ft 10 in Weight: 127 kg Allergies Allergy/AdvReac Type Severity Reaction Status Date / Time house dust mite Allergy Mild Verified 10/02/23 13:37 shellfish derived Allergy Mild Verified 10/02/23 13:37 house dust Allergy Verified 10/02/23 13:37 cat Allergy Mild Uncoded 10/02/23 13:37 dogs Allergy Mild Uncoded 10/02/23 13:37 grass Allergy Mild Uncoded 10/02/23 13:37 tree Allergy Mild Uncoded 10/02/23 13:37 Medications Home Medications Medication Instructions Recorded Confirmed Last Taken amlodipine 10 mg tablet 10 mg PO DAILY 10/02/23 10/24/23 10/24/23 budesonide 0.25 mg/2 mL suspension 0.5 mg inhalation DAILY PRN Other 10/02/23 10/24/23 Unknown for nebulization cholecalciferol (vitamin D3) 125 2,000 unit PO DAILY 10/02/23 10/24/23 10/24/23 mcg (5,000 unit) capsule duloxetine 30 mg capsule,delayed 30 mg PO DAILY 10/02/23 10/24/23 10/24/23 release famotidine 20 mg tablet 20 mg PO BID 10/02/23 10/24/23 10/24/23 fexofenadine 180 mg tablet 180 mg PO DAILY 10/02/23 10/24/23 10/24/23 hydrocodone 5 mg-acetaminophen 325 1 tab PO DAILY PRN Pain 10/02/23 10/24/23 Unknown mg tablet lisinopril 20 mg tablet 20 mg PO DAILY 10/02/23 10/24/23 10/24/23 multivitamin 1 tab PO DAILY 10/02/23 10/24/23 10/24/23 pantoprazole 40 mg tablet,delayed 40 mg PO DAILY 10/02/23 10/24/23 10/24/23 release pregabalin 150 mg capsule 150 mg PO BID 10/02/23 10/24/23 10/24/23 tizanidine 2 mg capsule 2 mg PO Q8H PRN Other 10/02/23 10/24/23 Unknown albuterol sulfate 90 mcg/actuation 2 puff inhalation Q6H PRN 10/06/23 10/24/23 Unknown aerosol inhaler shortness of breath or wheezing #8.5 grams budesonide-formoterol HFA 160 2 puff inhalation BID #10.2 grams 10/06/23 10/24/23 10/24/23 mcg-4.5 mcg/actuation aerosol inhaler (Breyna) fluticasone propionate 50 1 spray intranasal BID #16 grams 10/06/23 10/24/23 10/24/23 mcg/actuation nasal spray,suspension (Allergy Relief (fluticasone)) montelukast 10 mg tablet 10 mg PO QPM #30 tabs 10/06/23 10/24/23 10/24/23 (Singulair) dupilumab 300 mg/2 mL subcutaneous 300 mg (2 mL) subcut .every 2 10/09/23 10/24/23 Unknown pen injector weeks #4 mL Active Medications Generic Name Dose Route Start Last Admin Trade Name Freq PRN Reason Stop Dose Admin Albuterol 3 ml 10/24/23 19:37 10/25/23 07:08 Albut/Ipratrop 3mg/0.5mg Neb 3 Ml Vial INH 11/23/23 19:36 Not Given Q6R ANGELA Budesonide 0.5 mg 10/24/23 19:37 10/25/23 07:08 Budesonide 0.5 Mg/2 Ml Vial (Pulmicort) NEB 11/23/23 19:36 0.5 mg BIDR ANGELA Administration Fluticasone Propionate 1 sprays 10/24/23 21:00 10/25/23 08:58 Fluticasone Propionate Na Spr 16 Gm Btl NA 11/23/23 20:59 1 sprays BID ANGELA Administration Formoterol Fumarate 20 mcg 10/24/23 19:37 10/25/23 07:08 Formoterol 20 Mcg/2 Ml Vial NEB 11/23/23 19:36 20 mcg BIDR ANGELA Administration Hydromorphone HCl 1 mg 10/24/23 19:37 10/24/23 21:00 Hydromorphone Inj 1 Mg/Ml Syringe IV 11/07/23 19:36 1 mg Q4H PRN Administration Severe Pain (7,8,9,10) on NRS Lactated Ringer's 1,000 mls @ 150 mls/hr 10/24/23 17:00 10/25/23 08:57 Lr IV 10/25/23 12:59 150 mls/hr .Q6H40M ANGELA Administration Methylprednisolone 40 mg/ 0.64 mls @ 1.5 mls/min 10/25/23 09:00 10/25/23 08:57 Syringe IV 11/24/23 08:59 1.5 mls/min QAM ANGELA Administration Ampicillin Sodium/Sulbactam 100 mls @ 100 mls/hr 10/24/23 23:30 10/25/23 06:03 Sodium 3,000 mg/ Sodium IV 10/31/23 23:29 Infused Chloride Q6H ANGELA Infusion Past Medical History Medical History (Updated 10/25/23 @ 09:13 by Venkatesh Oconnell MD) Hypertension BEKA (obstructive sleep apnea) History of sarcoidosis Obesity Asthma Past Surgical History Surgical History (Updated 10/25/23 @ 09:13 by Venkatesh Oconnell MD) History of shoulder surgery History of hernia surgery History of lumbar fusion Hx of fusion of cervical spine Social History Smoking Status: Never smoker Do You Dip or Chew Tobacco: No Hx Alcohol Use: Yes alcohol intake frequency: holidays/special occasions only Hx Substance Use: Yes substance use type: crack/cocaine Last Used Substance Other:: 30 years ago Physical Exam Vital Signs Last Vital Signs Temp 36.3 C L 10/25/23 07:37 Pulse 80 10/25/23 07:37 Resp 18 10/25/23 07:37 BP 130/78 10/25/23 07:37 Pulse Ox 95 10/25/23 07:37 O2 Del Method Nasal Cannula 10/25/23 07:37 O2 Flow Rate 3 10/25/23 07:37 Testing Laboratory Results 10/25/23 06:51 10/25/23 06:51 PT 10.3 Seconds (9.0-12.0) 10/24/23 13:52 INR 0.9 (0.9-1.1) 10/24/23 13:52 APTT 28 Seconds (21-31) 10/24/23 13:52 Electrocardiogram Date: 10/24/23 Findings: + NSR @ (99)
[2023-10-25] MEDS ORDERED: ALBUTEROL 0.083% NEBU SOLN 3 ML VIAL INH PRN (09:39)
[2023-10-25] MEDS ORDERED: ATROPINE SULFATE 0.1 MG/ML 10ML SYR IV PRN (09:39)
[2023-10-25] MEDS ORDERED: fentaNYL citrate PF 100 MCG/2 ML VIAL IV PRN (09:39)
[2023-10-25] MEDS ORDERED: KETOROLAC 30 MG/ML VIAL IV PRN (09:39)
[2023-10-25] MEDS ORDERED: ONDANSETRON INJ 2 MG/ML 2 ML VIAL IV PRN (09:39)
[2023-10-25] MEDS ORDERED: ROCURONIUM BROMIDE 10 MG/ML 5 ML VIAL IV ONE (09:41)
[2023-10-25] MEDS ORDERED: fentaNYL citrate PF 100 MCG/2 ML VIAL ONE (09:46)
[2023-10-25] MEDS ORDERED: PHENYLEPHRINE 100MCG/ML 10ML SYR IV ONE (10:02)
[2023-10-25] MEDS ORDERED: ePHEDrine sulfate 50 MG/5 ML SYR ONE (10:02)
[2023-10-25] MEDS ORDERED: SUGAMMADEX SODIUM 200 MG/2 ML VIAL IV ONE (10:06)
--- NOTE | 2023-10-25 10:26 | Procedure Note ---
Procedure Note: Bronchoscopy Procedure PREOPERATIVE DIAGNOSIS: Foreign body aspiration in the RBI POSTOPERATIVE DIAGNOSIS: Foreign body in the RBI PROCEDURE PERFORMED: Flexible fiberoptic bronchoscopy with endobronchial biopsies COMPLICATIONS: None. INDICATION: Foreign body removal PROCEDURE: After obtaining an informed consent, the patient was brought to the OR. The patient had appropriate oxygen, blood pressure, heart rate, and respiratory rate monitoring applied and monitored continuously throughout the procedure. Sedation was managed by anesthesia, please refer to their notes Bronchoscope was introduced through the ETT The trachea appeared normal.The bronchoscope was then advanced through the valeriy, which was sharp. There were small nodular densities appreciated anteriorly in the trachea as well as RBI and left main. The scope was then advanced into the right main stem, foreign body was appreciated right at the entrance of RBI. Forceps was used to catch the foreign body, it was removed intact through the ET tube. After removal of the foreign body and each segment, subsegement in the right upper lobe, right middle lobe and right lower lobe were visualized. Minimal amount of clear secretion which was suctioned out. There were no other findings including evidence of mass, anatomic distortions, or hemorrhage. The bronchoscope was subsequently withdrawn and advanced into the left mainstem. Again, each segment and subsegment was well visualized. No specific masses or other lesions were identified throughout the tracheobronchial tree on the left. There was minimal amount of clear secretion which was suctioned out The nodular densities anteriorly in the right main as well as the distal trachea were biopsied with forceps. Minimal hemorrhage was identified and suctioned clear without difficulty. The bronchoscope was then withdrawn to the mainstem. The area was suctioned clear. The bronchoscope was then withdrawn. The patient tolerated the procedure well without evidence of desaturation or complications. Endobronchial biopsies will be sent for Gram stain. Recommendations: Follow-up cytology and pathology Follow-up chest x-ray Please note the above document was generated using voice recognition software. It may contain grammatical, syntax or spelling errors.Any formal questions or concerns about the content, text or information contained within the body of this dictation should be directly addressed to the provider for clarification. [facility] Procedure Codes (Charges) Pulmonary/Thoracic Procedure 1: Pulmonary and Thoracic: 41058 Bronchoscopy w/removal for body Procedure 2: Pulmonary and Thoracic: 94307 Bronchoscopy w bronchial or endobronchial bx
--- NOTE | 2023-10-25 10:58 | Anesthesiology Progress Note ---
Date of Service October 25, 2023 Anesthesia Post Procedure Vital Signs Vital Signs: Temp Pulse Pulse Pulse Resp BP BP 10/25/23 10:45 85 20 148/77 H 10/25/23 10:39 10/25/23 10:35 36.7 C 86 22 148/72 H 10/25/23 10:25 94 H 24 139/83 10/25/23 10:17 36.2 C L 92 H 22 157/80 H 10/25/23 07:37 36.3 C L 80 18 130/78 10/25/23 07:09 79 18 10/25/23 03:35 37.0 C 98 H 18 156/90 H 10/25/23 00:16 94 H 16 10/24/23 21:54 108 H 10/24/23 21:31 37.0 C 110 H 18 143/83 H 10/24/23 21:30 10/24/23 21:00 106 H 22 156/73 H 10/24/23 20:30 109 H 20 122/67 10/24/23 20:00 103 H 10/24/23 19:00 97 H 134/76 10/24/23 16:31 88 16 10/24/23 16:02 84 10/24/23 16:00 112/71 10/24/23 16:00 84 12 10/24/23 15:36 100 H 19 10/24/23 15:30 119/72 10/24/23 15:30 119/72 10/24/23 15:21 88 15 10/24/23 15:15 93 H 20 10/24/23 15:00 110/75 10/24/23 14:45 94 H 24 10/24/23 14:39 87 12 10/24/23 14:30 115/81 10/24/23 14:27 90 20 10/24/23 14:24 90 14 10/24/23 13:54 115 H 28 H 10/24/23 13:54 10/24/23 13:54 10/24/23 13:08 36.6 C 111 H 18 131/87 Pulse Ox O2 Del Method O2 Flow Rate 10/25/23 10:45 94 Nasal Cannula 1 10/25/23 10:39 Mechanical Vent 10/25/23 10:35 96 Nasal Cannula 2 10/25/23 10:25 98 Oxymask 4 10/25/23 10:17 100 Oxymask 6 10/25/23 07:37 95 Nasal Cannula 3 10/25/23 07:09 94 Nasal Cannula 3 10/25/23 03:35 96 Nasal Cannula 4 10/25/23 00:16 93 Nasal Cannula 3 10/24/23 21:54 10/24/23 21:31 95 Nasal Cannula 3 10/24/23 21:30 Nasal Cannula 4 10/24/23 21:00 95 Nasal Cannula 3 10/24/23 20:30 97 Nasal Cannula 2 10/24/23 20:00 10/24/23 19:00 94 Nasal Cannula 2 10/24/23 16:31 95 Room Air 10/24/23 16:02 10/24/23 16:00 10/24/23 16:00 92 Room Air 10/24/23 15:36 94 10/24/23 15:30 10/24/23 15:30 10/24/23 15:21 93 10/24/23 15:15 92 10/24/23 15:00 10/24/23 14:45 94 10/24/23 14:39 94 10/24/23 14:30 10/24/23 14:27 93 10/24/23 14:24 95 10/24/23 13:54 95 Room Air 10/24/23 13:54 Room Air 10/24/23 13:54 Room Air 10/24/23 13:08 92 Transfer of Care Handoff Completed per policy Notes Mental Status: alert / awake / arousable Patient Amnestic to Procedure: Yes Nausea / Vomiting: adequately controlled Pain: adequately controlled Airway Patency, RR, SpO2: stable & adequate BP & HR: stable & adequate Hydration State: stable & adequate Anesthetic Complications: no major complications apparent
--- NOTE | 2023-10-25 11:29 | XRay Report ---
XR chest 1V portable HISTORY: Post Bronchoscopy COMPARISON: Chest CT 10/24/2023. FINDINGS: The prior chest CT demonstrates partial opacification of the right bronchus intermedius and a trace right pneumothorax. No pneumothorax is identified on this examination. No pleural effusions. The heart remains enlarged. Spinal stimulator leads and cervical spinal fusion hardware again noted. No evidence for pulmonary edema. A few bibasilar linear densities favor subsegmental atelectasis. No new focal lung consolidations identified. IMPRESSION: 1. No definite pneumothorax by conventional radiographic technique. 2. No new focal lung consolidations to suggest a pneumonia. 3. Stable cardiomegaly. ACT 112: Negative or not required by law. Electronically signed by: Dimitry Jameson M.D. 10/25/2023 11:27 AM
[2023-10-25] MEDS: FAMOTIDINE 20MG IV PUSH 20 MG/5 ML SYR IV SCH (11:30)
[2023-10-25] MEDS: PANTOprazole 40 MG in SYRINGE 0 ML IV SCH (12:41)
[2023-10-25] MEDS: guaiFENesin/DEXTROM SYRUP 200MG/20MG 10ML UDC PO SCH (13:23)
[2023-10-25] MEDS: ACETAMINOPHEN 1,000 MG/100 ML VIAL IV PRN (17:16)
--- NOTE | 2023-10-25 18:29 | Hospitalist Progress Note ---
Date of Service October 25, 2023 Assessment & Plan (1) Aspiration into airway: Plan: Choking event with aspiration into airway on 10/22 around noon Seen [address] Dr Cruz today - [facility] [place] Pulmonary Underwent bronchoscopy Food material seen in the right bronchial tree s/p removal Since the bronch the patient feels much better Now stable in room air He remains on unasyn IV - day #2 He remains on IV solumedrol Nebs continue Appreciate Dr Cruz's assistance The patient has severe GERD by history He has regurgitation/reflux frequently even despite regular use of PPI + H2 wanda He reports excess "saliva" in his mouth which suggests chronic reflux Will ask speech therapy to perform swallow eval He has a colonoscopy scheduled in late November; perhaps an EGD can be performed then as well Consider barium swallow Increase PPI to BID dosing GERD counseling (2) Asthma exacerbation: Plan: Asthma flare 2nd to aspiration event Cont Solu-Medrol 40mg IV QAM Cont DuoNeb Q6R scheduled Cont Performist BID Cont Pulmicort BID Pulm toilet See #1 above (3) Hypertension: Plan: Holding amlodipine and lisinopril at this time Resume as needed (4) History of sarcoidosis: Plan: noted never received formal Rx for such (ie - prednisone, etc) (5) GERD (gastroesophageal reflux disease): Plan: see #1 discussion increase PPI to bid dosing cont pepcid 20mg BID speech eval outpatient EGD would be ideal (6) Morbid obesity with BMI of 40.0-44.9, adult: Plan: BMI 40 (7) SIRS (systemic inflammatory response syndrome): Plan: 2nd to #1 (Tachy, tachypnea, etc) Plan home tomorrow? if he stays beyond tomorrow plan to add lovenox for DVT proph Admission and Anticipated Discharge Date Admission Date: October 24, 2023 Subjective saw patient several hours after his bronchoscopy he reports feeling much better no further O2 requirement breathing is more comfortable still with cough & wheezing but improved he reports chronic issues with excess "saliva" in his mouth reports frequent GERD symptoms despite use of PPI + H2 wanda he had EGD 2 years ago in [place] and was told he had an ulcer and "irritation" took a PPI for over a year he often regurgitates and will taste acid in his mouth and nose typically does not have dysphagia scheduled to have a colonoscopy later in November but not EGD Review of Systems Review of Systems: gen - no fevers or chills cv - no orthopnea or edema pulm - cough/wheezing; no dyspnea at rest GI - no abd pain Physical Exam Physical Exam: gen - obese, NAD, occasional cough neck - no JVD mouth - MMM heart - tachy, s1 s2, no murmur lungs - mild end-exp wheezes b/l, but no rales; normal airation abd - soft NT ND BS+ ext - no edema, pulses 2+ b/l psych - a/o x 3 Results & Data Results & Data Vital Signs (Past 12 Hours) Vital Signs Temp Pulse Pulse Pulse Resp BP Pulse Ox 10/25/23 15:39 37.1 C 112 H 16 127/64 96 10/25/23 14:42 108 H 10/25/23 12:37 95 H 18 131/76 94 10/25/23 12:02 85 16 95 10/25/23 11:30 36.5 C 85 18 130/71 94 10/25/23 11:00 36.4 C L 93 H 18 131/77 94 10/25/23 10:45 85 20 148/77 H 94 10/25/23 10:39 10/25/23 10:35 36.7 C 86 22 148/72 H 96 10/25/23 10:25 94 H 24 139/83 98 10/25/23 10:17 36.2 C L 92 H 22 157/80 H 100 10/25/23 09:39 80 10/25/23 07:37 36.3 C L 80 18 130/78 95 10/25/23 07:09 79 18 94 O2 Del Method O2 Flow Rate 10/25/23 15:39 Room Air 10/25/23 14:42 10/25/23 12:37 Room Air 10/25/23 12:02 Room Air 10/25/23 11:30 Room Air 10/25/23 11:00 Room Air 10/25/23 10:45 Nasal Cannula 1 10/25/23 10:39 Mechanical Vent 10/25/23 10:35 Nasal Cannula 2 10/25/23 10:25 Oxymask 4 10/25/23 10:17 Oxymask 6 10/25/23 09:39 10/25/23 07:37 Nasal Cannula 3 10/25/23 07:09 Nasal Cannula 3 Laboratory Results Laboratory Results - last 24 hr 10/25/23 06:51 WBC 18.84 H RBC 5.36 Hgb 14.1 Hct 43.3 MCV 80.8 MCH 26.3 MCHC 32.6 RDW Std Deviation 44.1 RDW Coeff of Nichelle 15.1 H Plt Count 435 H MPV 9.5 Immature Gran % (Auto) 0.6 Neut % (Auto) 77.2 Lymph % (Auto) 18.1 [place] % (Auto) 3.9 Eos % (Auto) 0.0 Baso % (Auto) 0.2 Neut # (Auto) 14.56 H Lymph # (Auto) 3.41 H [place] # (Auto) 0.73 H Eos # (Auto) 0.00 Baso # (Auto) 0.03 Immature Gran # (Auto) 0.11 Sodium 137 Potassium 4.5 Chloride 103 Carbon Dioxide 26 Anion Gap 8 BUN 21 Creatinine 0.74 Est Cr Clr Drug Dosing 147.4 Est GFR ( Amer) 118.7 Est GFR (Non-Af Amer) 102.4 BUN/Creatinine Ratio 28.4 H Glucose 137 H Calcium 9.4 Magnesium 1.9 PG Care Time/CCT Total # of Minutes Spent Total Time Spent with Patient: Total time spent is greater than 50% in coordination of care (as documented) at patient's floor/unit and/or counseling patient: Coding Level of Care Code 47724 SUB INP/OBS CARE 2/35MIN Diagnoses Aspiration into airway T17.908A Asthma exacerbation J45.901 Hypertension I10 History of sarcoidosis Z86.2 GERD (gastroesophageal reflux disease) K21.9 Morbid obesity with BMI of 40.0-44.9, adult E66.01; Z68.41 SIRS (systemic inflammatory response syndrome) R65.10
[2023-10-25] MEDS: PANTOprazole 40 MG TAB PO SCH (20:16)
[2023-10-25] MEDS: FAMOTIDINE 20 MG TAB PO SCH (20:16)
[2023-10-26 06:22] LABS: Hematocrit (blood only) 39.6 % (42.0-52.0); Hemoglobin 12.9 g/dl (14.0-18.0); Mean Corpuscular Hemoglobin 26.2 pg (25.0-34.0); Mean Corpuscular Hgb Conc 32.6 g/dL (32.0-36.0); Mean Corpuscular Volume 80.3 fL (80.0-100.0); Mean Platelet Volume 9.8 fL (9.4-12.4); Platelet Count 400 K/uL (130-400); RDW Coefficient of Variation 15.2 % (11.5-14.5); Red Blood Count 4.93 M/uL (4.70-6.10); White Blood Count 18.78 K/ul (4.8-10.8)
[2023-10-26 06:46] LABS: Basophils # (auto) 0.06 K/uL (0.00-0.20); Basophils % (auto) 0.3 %; Eosinophils # (auto) 0.16 K/uL (0.00-0.50); Eosinophils % (auto) 0.9 %; Immature Granulocytes # (auto) 0.11 K/uL (0.01-0.20); Immature Granulocytes % (auto) 0.6 %; Lymphocytes # (auto) 5.35 K/uL (1.20-3.40); Lymphocytes % (auto) 28.5 %; Monocytes # (auto) 1.88 K/uL (0.11-0.59); Neutrophils # (auto) 11.22 K/uL (1.40-6.50); Neutrophils % (auto) 59.7 %
[2023-10-26 06:48] LABS: BUN Creatinine Ratio 24.7 (10-20); Calcium 8.8 mg/dl (8.6-10.3); Creatinine Clr Calc Pharmacy 139.2 ml/min; Est GFR (African American) 116.8 ml/min; Est GFR (Non-African American) 100.7 ml/min; Potassium 3.8 mmol/L (3.5-5.1)
--- NOTE | 2023-10-26 07:12 | Pulmonology Progress Note ---
Date of Service October 26, 2023 Assessment & Plan (1) Asthma exacerbation: (2) Aspiration into airway: (3) Foreign body aspiration: (4) Obesity: (5) BEKA (obstructive sleep apnea): Plan CT chest 10/24/2023 personally reviewed: Narrowing of the RBI, likely foreign body within the RBI 7 mm left upper lobe pulmonary nodule Patient also seems to have very minimal air pocket anteriorly on the right side, questionable small pneumothorax No significant mediastinal lymphadenopathy --Aspiration With a foreign body in the RBI Likely Hem/making which he swallowed S/p bronchoscopy 10/25/2023, foreign body was removed from the RBI successfully. -- Acute Asthma exacerbation Severe persistent Strong family history of asthma No history of nasal polyps. Able to tolerate [id number] NSAIDs without any issues On Symbicort 160-4.5 mcg along with as needed albuterol at home Patient also uses dupilumab twice a month Add montelukast 10 mg History of IgE 410 and eosinophil count 450 Spirometry 10/06/2023: Moderate obstructive lung dysfunction FVC 3.81 L 78%, FEV1 2.3 L 62%, FEV1/FVC 61 --History of sarcoidosis Diagnosed approximately 20 years ago s/p bronchoscopy Was never treated with prednisone Full PFT prior to next visit to look at the DLCO and TLC Patient recently had lab work, will try to get the results. If LFT and renal function test along with CBC were not done then I will put the orders in -- BEKA Home sleep study 09/22/2023: AHI 45 Following up with sleep physician --Obesity Advised to lose weight diet and exercise Plan: Can transition to prednisone and taper it over 5 days. Continue with home Breyna high-dose 2 puffs twice a day along with montelukast 10 Dupixent Patient okay to be discharged from pulmonary perspective. No further recommendation from pulmonary perspective, will sign off Please call directly with any questions Please note the above document was generated using voice recognition software. It may contain grammatical, syntax or spelling errors.Any formal questions or concerns about the content, text or information contained within the body of this dictation should be directly addressed to the provider for clarification. Admission and Anticipated Discharge Date Admission Date: October 24, 2023 Subjective Patient seen and examined at bedside. No acute distress, notable symptoms overnight He was saturating 96% on room air. He said he slept well. Occasional cough, still having mild blood-tinged phlegm which is decreasing in intensity and frequency. No headache or blurry vision Denies any chest pain Review of Systems 2 Review of Systems: All systems reviewed & are unremarkable except as noted in Subjective Physical Exam 2 Physical Exam: Constitutional: No acute distress HEENT: EOMI, PERRLA Respiratory system: Good air entry bilaterally, no rhonchi, no wheeze, no rhonchi CVS: S1-S2 positive, no murmurs or gallops Abdomen: Soft, nontender, nondistended, positive bowel sounds x4, obese Extremities: +2 pulses bilaterally radialis/DP, no cyanosis, no edema Neuro: Awake alert oriented x3 Psych: Normal mood and affect G/U: No reid Skin: no rashes, warm and dry Lymphatic: no cervical or axillary lymphadenopathy Results & Data Results & Data Vital Signs (Past 12 Hours) Vital Signs Temp Pulse Pulse Resp BP Pulse Ox O2 Del Method 10/26/23 07:06 84 18 96 Room Air 10/26/23 02:53 36.4 C L 83 18 133/75 96 Room Air 10/26/23 00:15 76 16 97 Room Air 10/25/23 23:07 36.7 C 16 122/68 95 Room Air 10/25/23 21:51 92 H 10/25/23 20:45 Room Air 10/25/23 19:22 91 H 18 96 Room Air Laboratory Results 10/26/23 05:20 10/26/23 05:20 PG Care Time/CCT Total # of Minutes Spent Total Time Spent with Patient: Total time spent is greater than 50% in coordination of care (as documented) at patient's floor/unit and/or counseling patient: Coding Level of Care Code 66682 SUB INP/OBS CARE 2/35MIN Diagnoses Asthma exacerbation J45.901 Aspiration into airway T17.908A Foreign body aspiration T17.908A Obesity E66.9 BEKA (obstructive sleep apnea) G47.33
--- NOTE | 2023-10-26 08:15 | XRay Report ---
XR chest 1V portable CLINICAL HISTORY: f/u COMPARISON STUDY: Chest CT October 24, 2023. Chest radiograph October 25, 2023. FINDINGS: Lung volumes are mildly diminished. There is mild left basilar opacity. No pneumothorax or pleural effusion is present. Postoperative findings within the spine are incidentally noted. Intracan alicular electrode is noted. Cardiomegaly is unchanged. Pulmonary vascularity is normal. IMPRESSION: 1. Mild left basilar opacity. This favors atelectasis although an infectious process could appear sim ilar. 2. No pneumothorax. ACT 112: Negative or not required by law. Electronically signed by: Sumit Nicole M.D. 10/26/2023 8:14 AM
[2023-10-26] MEDS: COUGH DROP (SUGAR FREE) LOZ 24 LOZ/1 BOX BUCCAL STA (10:36)
--- NOTE | 2023-10-26 15:01 | Discharge Summary ---
Date of Service date of admission - October 24, 2023 date of discharge - October 26, 2023 Admission HPI Per Admitting Provider Catarino Hunter is a 58-year-old male with PMH of asthma, BEKA, and sarcoidosis. He presented on 10/23 for trouble breathing following an episode of choking. He reports he was eating [employer] levers pizza yesterday on 10/22 when he experienced an episode of choking and aspiration around 12 PM. Following this episode, he became short of breath both at rest and with exertion, and has been wheezing significantly. He endorses pleuritic chest pain, that is worse on the right lower rib wall. He describes it as an intense, squeezing pain; rates it 4/10 at present, 10/10 at worst. He reports he felt like his "ribs were clicking" when he took a deep breath. Exacerbated by deep breaths. He took hydrocodone 325 mg last night. He denies coughing or hemoptysis. Patient reports that he took his regular morning medications today; no recent change in medications. He reports he is unable to take azithromycin due to rashes. He denies smoking, tobacco use, or recent alcohol use. He does not use supplemental oxygen at home or CPAP at night. Patient's vitals are stable at time of admission; SpO2 94% on RA. ED course: NSS 500 mL IV Unasyn 3000 mg IV Formoterol 20 mcg neb Budesonide 0.5 mg neb Solu-Medrol 125 mg IV ROS: Patient endorses right-side chest pain, SOB at rest, wheezing Patient denies fever, chills, night-sweats, abdominal pain, N/V/D, urinary sym ptoms, or numbness/tingling going down arms Principal Diagnosis 1. aspiration event with removal of food from the right bronchial tree via bronchoscope - Dr Stacy Cruz 2. asthma exacerbation 2nd to #1 3. severe GERD 4. high blood pressure 5. possible aspiration pneumonitis Discharge Exam gen - obese, NAD, occasional cough neck - no JVD mouth - MMM heart - RRR, s1 s2, no murmur lungs - mild end-exp wheezes b/l, no rales; normal airation abd - soft NT ND BS+ ext - no edema, pulses 2+ b/l psych - a/o x 3 Discharge Data Allergies Allergy/AdvReac Type Severity Reaction Status Date / Time house dust mite Allergy Mild Verified 10/02/23 13:37 shellfish derived Allergy Mild Verified 10/02/23 13:37 house dust Allergy Verified 10/02/23 13:37 cat Allergy Mild Uncoded 10/02/23 13:37 dogs Allergy Mild Uncoded 10/02/23 13:37 grass Allergy Mild Uncoded 10/02/23 13:37 tree Allergy Mild Uncoded 10/02/23 13:37 Consultations [facility] [place] Procedures Performed Operation Date: 10/25/23 09:05 Actual Procedures Bronchoscopy, Foreign Body Removal, Endobronchial Biopsy - Stacy Cruz MD, [facility] The trachea appeared normal.The bronchoscope was then advanced through the valeriy, which was sharp. There were small nodular densities appreciated anteriorly in the trachea as well as RBI and left main. The scope was then advanced into the right main stem, foreign body was appreciated right at the entrance of RBI. Forceps was used to catch the foreign body, it was removed intact through the ET tube. After removal of the foreign body and each segment, subsegement in the right upper lobe, right middle lobe and right lower lobe were visualized. Minimal amount of clear secretion which was suctioned out. There were no other findings including evidence of mass, anatomic distortions, or hemorrhage. The bronchoscope was subsequently withdrawn and advanced into the left mainstem. Again, each segment and subsegment was well visualized. No specific masses or other lesions were identified throughout the tracheobronchial tree on the left. There was minimal amount of clear secretion which was suctioned out The nodular densities anteriorly in the right main as well as the distal trachea were biopsied with forceps. Minimal hemorrhage was identified and suctioned clear without difficulty. The bronchoscope was then withdrawn to the mainstem. The area was suctioned clear. The bronchoscope was then withdrawn. The patient tolerated the procedure well without evidence of desaturation or complications. Endobronchial biopsies will be sent for Gram stain. Ordered Studies 10/24/23 14:24 CT chest diagnostic wo con Stat Hospital Course (1) Aspiration into airway: Patient had a choking event with aspiration into the airway on 10/23/23 around noon He presented to [facility] on 10/24/23 with persistent pulmonary symptoms including cough, wheezing, and dyspnea He was seen by Dr Stacy Cruz from [facility] who advised bronchoscopy Mr Hunter underwent such on 10/25/23 which showed food material in the right bronchial tree s/p removal by Dr Cruz Following the bronchoscopy the patient felt much better He remained stable in room air thereafter and until hospital discharge He received IV unasyn and IV solumedrol along with neb treatments while here At discharge he will complete a course of oral augmentin and oral prednisone for his asthma flare and presumed aspiration pneumonitis The patient has severe GERD by history He has regurgitation/reflux frequently even despite regular use of PPI + H2 wanda He reports excess "saliva" in his mouth which suggests chronic reflux He was seen by speech therapy due to his aspiration event and his severe GERD Bedside swallow evaluation was normal He has a colonoscopy scheduled in late November 2023; I corresponded with [facility] and they will also perform EGD at that time (2) Asthma exacerbation: Asthma flare 2nd to aspiration event See #1 above (3) Hypertension: BPs were controlled while here At discharge I asked him to hold his amlodipine but to continue the lisinopril as his BPs were controlled without the amlodipine (4) History of sarcoidosis: never received formal Rx for such (ie - prednisone, etc) in the past (5) GERD (gastroesophageal reflux disease): see #1 for further discussion increase PPI to bid dosing cont pepcid 20mg BID outpatient EGD planned for November 2023 GERD diet/handout given (6) Morbid obesity with BMI of 40.0-44.9, adult: BMI ~40 (7) SIRS (systemic inflammatory response syndrome): 2nd to #1 (Tachycardia, tachypnea, etc) resolved (8) Aspiration pneumonitis: see #1 above Total Time Total Time Spent Total Time Spent (In Minutes): 40 Discharge Plan Discharge Items Patient Disposition: Home - Self-Care Reason For Visit: ASPIRATION EVENT, SHORTNESS OF BREATH Discharge Diagnosis: 1. aspiration event with removal of food from the right bronchial tree, via bronchoscope, by Dr Stacy Cruz 2. asthma exacerbation 3. severe GERD 4. high blood pressure Activity: As commented below Activity Comment: gradually increase your activities over the next 7-10 days Non-emergency contact: Primary Care Provider, Specialist and Outpatient Phlebotomist Call non-emergency contact if: you have any medication questions, your symptoms worsen and you have a fever Follow-up/Referrals: Stacy Cruz MD, [facility] [Physician] - 10/30/23 11:30 am (follow up with Pulmonary: Jimbo Oconnell 10/29 @11:30) Megan Elrdidge [Primary Care Provider] - 10/30/23 10:45 am (PCP follow: Dr Alvares 10/29 @10:45) Phoenix Michael Jr, MD [Physician] - 12/01/23 (EGD & colonoscopy ) Diet: Heart Healthy Addtl Attending Provider Instructions: Mr Hunter, Vincent were admitted to [facility] after you had had an aspiration event at your home. You were placed on oxygen, given IV antibiotics, and given IV steroids along with breathing treatments. Dr Stacy Cruz from [facility] saw you in consult and recommended a bronchoscopy procedure. This was completed on 10/25/23. During the scope Dr Cruz found food lodged in the bronchial tubes of the right lung. The food was removed. Following your bronchoscopy procedure you felt better and made nice progress. Oxygen has been weaned off. In addition to the above, we had speech therapy check your swallowing and this returned normal. You do have severe acid reflux disease (GERD) and this needs to be addressed further in the near-future with repeat upper endoscopy, etc. Recommendations - 1. antibiotics - * amoxicillin-clavulanate 875mg - 1 tablet twice daily x 5 days, first dose tonight with your evening meal * most common side effect - diarrhea * this is for your lungs 2. prednisone course - start 10/27/23, take with food. This is for your asthma flare-up. 3. albuterol - either via spacer device OR via your nebulizer treatment - every 4 hours as needed for cough/wheezing/shortness of breath. 4. please HOLD your amlodipine blood pressure medicine. During your stay you were not receiving either your amlodipine or your lisinopril and your blood pressures were well-controlled. Follow-up with your family doctor and they can tell you whether to resume the amlodipine in the future. 5. continue your lisinopril as previous. 6. for cough/congestion - [id number] mucinex up to 1200mg twice daily as needed/as desired. 7. please INCREASE your pantoprazole to 40mg twice daily. This is for your GERD. 8. after eating/drinking please do NOT lay down on the couch or in bed for least 2 hours, preferably 3 hours. This reduces the risk of aspiration from severe reflux disease. Follow-up - see separate section Return to [facility] if - * you have fevers over 100 degrees * you have worsening shortness of breath * you have worsening wheezing despite taking all of your asthma medicines including albuterol * you have severe diarrhea * you have chest pains * any other concerns It was our pleasure to care for you! -Dr Gibson Pending Studies at Discharge: No Stand-Alone Forms: My [facility], Smoking Cessation Medications and DC Order Prescriptions: New albuterol sulfate 2.5 mg /3 mL (0.083 %) solution for nebulization 2.5 mg inhalation Q4H PRN (Reason: shortness of breath or wheezing or cough) Qty: 90 0RF prednisone 10 mg tablet 10 mg PO .daily as directed Qty: 20 0RF Rx Instructions: start 10/27/23, take w/ food. 4 tabs PO QD x 2 days; 3 tabs PO QD x 2 days; 2 tabs PO QD x 2 days; 1 tab PO QD x 2 days. Continued duloxetine 30 mg capsule,delayed release(DR/EC) 30 mg PO DAILY lisinopril 20 mg tablet 20 mg PO DAILY multivitamin Tablet 1 tab PO DAILY famotidine 20 mg tablet 20 mg PO BID budesonide 0.25 mg/2 mL suspension for nebulization 0.5 mg inhalation DAILY PRN (Reason: Other) tizanidine 2 mg capsule 2 mg PO Q8H PRN (Reason: Other) hydrocodone-acetaminophen 5-325 mg tablet 1 tab PO DAILY PRN (Reason: Pain) pregabalin 150 mg capsule 150 mg PO BID cholecalciferol (vitamin D3) 125 mcg (5,000 unit) capsule 2,000 unit PO DAILY fexofenadine 180 mg tablet 180 mg PO DAILY budesonide-formoterol [Breyna] 160-4.5 mcg/actuation HFA aerosol inhaler 2 puff inhalation BID Qty: 10.2 6RF albuterol sulfate 90 mcg/actuation HFA aerosol inhaler 2 puff inhalation Q6H PRN (Reason: shortness of breath or wheezing) Qty: 8.5 6RF fluticasone propionate [Allergy Relief (fluticasone)] 50 mcg/actuation spray,suspension 1 spray intranasal BID Qty: 16 4RF Rx Instructions: administer into each nostril montelukast [Singulair] 10 mg tablet 10 mg PO QPM Qty: 30 5RF dupilumab 300 mg/2 mL pen injector 300 mg subcut .every 2 weeks Qty: 4 5RF Changed pantoprazole 40 mg tablet,delayed release (DR/EC) 40 mg PO BID Qty: 60 2RF Held amlodipine 10 mg tablet 10 mg PO DAILY Hold Instructions: hold unless your family doctor asks you to resume Discharge Orders: Discharge Order (Routine); Ordered 10/26/23 Ordered By: Adama Avelar/Other Patient Handouts: Using an Inhaler with a Spacer, Tips to Control Acid Reflux, How Acid Reflux Affects Your Throat Admission Data Admit Date/Time: 10/24/23 16:51 Attending Provider: Adama Gibson Admit Provider: Yohannes Gloria Primary Care Provider: Megan Eldridge Other Providers: Yohannes Gloria; Sergio Wan Other Interventions: Discharge Summary Assessment (RN) Last Done: 10/26/23 15:53 Coding Level of Care Code 69216 INP/OBS DISCH >30 MIN Diagnoses Aspiration into airway T17.908A Asthma exacerbation J45.901 Hypertension I10 History of sarcoidosis Z86.2 GERD (gastroesophageal reflux disease) K21.9 Morbid obesity with BMI of 40.0-44.9, adult E66.01; Z68.41 SIRS (systemic inflammatory response syndrome) R65.10 Aspiration pneumonitis J69.0
[2023-10-26 15:13] VITALS: BP 139/82; RESP 16; TEMP 99; O2SAT 94
[2023-10-26 15:55] VITALS: PULSE 91
--- NOTE | 2023-10-26 22:55 | Electrocardiogram Report ---
Test Reason : Blood Pressure : / mmHG Vent. Rate : 099 BPM Atrial Rate : 099 BPM P-R Int : 170 ms QRS Dur : 070 ms QT Int : 324 ms P-R-T Axes : 014 044 -08 degrees QTc Int : 415 ms Normal sinus rhythm Low voltage QRS Borderline ECG No previous ECGs available Confirmed by Tay Sloan ([id number]) on 10/26/2023 10:55:34 PM Referred By: REFERRED SELF Confirmed By:Tay Sloan
== END 2023-10-26 16:40 | disposition home or self-care (01) | DRG 205 ==
LOC: ED 13:08 → SUATTDRO 16:51 → EDINP 16:51 → 2S 21:20